=== PATIENT | male | born 1945 | race Caucasian/White ===

== ENCOUNTER 2020-07-20 08:50 | Inpatient (IN) | payer MEDICARE, OTHER ==
[~2020-07-20] VITALS: Ht 177.8 cm; Wt 61.7 kg
[2020-07-20] MEDS ORDERED: DEXAMETHASONE SOD PHOSPHATE 10 MG/ML VIAL IV ONE (09:00)
[2020-07-20] MEDS ORDERED: ACETAMINOPHEN ES 500 MG TABLET PO ONE (09:00)
[2020-07-20] MEDS ORDERED: ATEN25TA PO (09:30)
[2020-07-20] MEDS ORDERED: PRAV20TA4 PO (09:30)
[2020-07-20] MEDS ORDERED: MIDO2.5T PO (09:30)
[2020-07-20] MEDS ORDERED: BENA10TA74 PO (09:30)
[2020-07-20] MEDS ORDERED: ELTR50TA PO (09:30)
[2020-07-20] MEDS ORDERED: ALLO100T PO (09:30)
[2020-07-20] MEDS ORDERED: APIX5TAB PO (09:30)
[2020-07-20] MEDS ORDERED: FURO40TA5 PO (09:30)
[2020-07-20 09:58] LABS: BASOPHILS # (AUTO) 0.4 /CMM (0.0-0.2); BASOPHILS % (AUTO) 1.3 % (0.0-2.0); HEMATOCRIT 35 % (39-51); HEMOGLOBIN 11.2 g/dL (13.5-17.5); LYMPHOCYTES # (AUTO) 22.3 /CMM (0.8-4.8); LYMPHOCYTES % (AUTO) 75.3 % (20.0-44.0); MEAN CORPUSCULAR HGB CONC 32 g/dl (31.0-36.0); MEAN CORPUSCULAR VOLUME 86 fL (80-96); MONOCYTES # (AUTO) 0.2 /CMM (0.1-1.30); MONOCYTES % (AUTO) 0.6 % (2.0-12.0); NEUTROPHILS # (AUTO) 6.8 /CMM (1.8-8.9); NEUTROPHILS % (AUTO) 22.8 % (43.0-81.0); PLATELET COUNT (AUTO) 89 /CMM (150-450); RED BLOOD CELL COUNT(AUTO) 4.04 MIL/uL (4.5-6.0); WHITE BLOOD COUNT (AUTO) 29.7 K/uL (4.3-11.0)
[2020-07-20] MEDS ORDERED: VANCOMYCIN 1 GM in IV D5W 250 ML IV ONE (10:30)
[2020-07-20] MEDS ORDERED: PIPERACILLIN /TAZOBACTAM 3.375 G in IV D5W 50 ML IV ONE (10:30)
--- NOTE | 2020-07-20 10:43 | NUR ---
covid swab done sent to lab
[2020-07-20 10:46] LABS: LYMPHOCYTES % (MANUAL) 61 % (16-48); MONOCYTES % (MANUAL) 13 % (0-11.0); NEUTROPHILS % (MANUAL) 26 (42-76)
[2020-07-20] MEDS ORDERED: ACETAMINOPHEN ES 500 MG TABLET ONE (10:50)
[2020-07-20] MEDS ORDERED: DEXAMETHASONE SOD PHOSPHATE 10 MG/ML VIAL ONE (10:50)
--- NOTE | 2020-07-20 10:56 | NUR ---
LACTIC 2.0
--- NOTE | 2020-07-20 11:00 | NUR ---
blood culture collected prior to iv atb administration.
[2020-07-20 11:06] LABS: CARBON DIOXIDE 25 mmol/L (21-32); CHLORIDE 90 mmol/L (98-107); SODIUM SERUM 130 mmol/L (136-145)
[2020-07-20 11:07] LABS: ALANINE AMINOTRANSFERASE 33 U/L (12-78); ALKALINE PHOSPHATASE 72 U/L (46-116); ASPARTATE AMINOTRANSFERASE 96 U/L (15-37); BILIRUBIN,DIRECT 0.4 mg/dL (0.0-0.2); BILIRUBIN,TOTAL 1.1 mg/dL (0.2-1.0); CALCIUM, SERUM 8.9 mg/dL (8.5-10.1); CREATININE 2.4 mg/dL (0.6-1.3); GLUCOSE 138 mg/dL (74-106); UREA NITROGEN, BLOOD 71 mg/dL (7-18)
[2020-07-20 11:08] LABS: ALBUMIN 2.8 g/dL (3.4-5.0); TOTAL PROTEIN, SERUM 7.7 g/dL (6.4-8.2)
[2020-07-20 11:09] LABS: POTASSIUM 2.4 mmol/L (3.5-5.1)
--- NOTE | 2020-07-20 11:12 | NUR ---
K 2.4
--- NOTE | 2020-07-20 11:15 | NUR ---
urine collected sent to lab
[2020-07-20 11:57] LABS: BILIRUBIN,URINE Negative (NEGATIVE); BLOOD, URINE Negative Ery/uL (NEGATIVE); COLOR,URINE YELLOW (YELLOW); LEUKOCYTE ESTERASE ,URINE Negative (NEGATIVE); NITRITE, URINE Negative (NEGATIVE); PROTEIN,URINE 30 mg/dl (NEGATIVE); UGLUCOSE Negative (NEGATIVE); UROBILINOGEN,URINE 0.2 EU/dL (0.2)
[2020-07-20] MEDS: POTASSIUM CL. PREMIX PERIPHER. 50 ML IV SCH ×4 (12:00→15:30)
--- NOTE | 2020-07-20 12:01 | NUR ---
covid positive. made aware.
[2020-07-20] MEDS ORDERED: POTASSIUM CL. PREMIX PERIPHER. 50 ML ONE (12:04)
[2020-07-20 12:15] LABS: RBC,URINE 0-2 /HPF (0-2); WBC,URINE 0-2 /HPF (0-3)
[2020-07-20 12:18] LABS: BACTERIA,URINE Few /HPF (None Seen); SQUAMOUS EPITHELIAL CELL,UR Rare /HPF (None Seen)
--- NOTE | 2020-07-20 12:29 | NUR ---
LACTIC 2.2
[2020-07-20] MEDS ORDERED: MAGNESIUM HYDROXIDE 30 ML UDC PO PRN (12:30)
[2020-07-20] MEDS ORDERED: ONDANSETRON HCL/PF 4 MG/2 ML VIAL IVP PRN (12:30)
[2020-07-20] MEDS ORDERED: IV NS 0.9% 1,000 ML IV PRN ×2 (12:30)
[2020-07-20] MEDS ORDERED: MIDODRINE HCL 2.5 MG TABLET PO PRN (12:30)
[2020-07-20] MEDS ORDERED: HYDROCODONE/APAP 5/325MG TABLET PO PRN (12:30)
[2020-07-20] MEDS ORDERED: Z GUARD REMEDY 2 OZ OINT TP PRN (12:30)
[2020-07-20] MEDS ORDERED: MORPHINE SULFATE INJ 2 MG/ML DISP.SYRIN IV PRN (12:30)
[2020-07-20] MEDS ORDERED: MAG HYDROX/AL HYDROX/SIMETH 30 ML UDC PO PRN (12:30)
[2020-07-20] MEDS ORDERED: EZET10TA32 PO (12:39)
[2020-07-20] MEDS ORDERED: TRAZ-252 PO (12:39)
[2020-07-20 13:01] LABS: C-REACTIVE PROTEIN 17.5 mg/dL (0.0-0.9)
[2020-07-20] MEDS ORDERED: POTASSIUM CL. PREMIX PERIPHER. 150 ML ONE (13:49)
--- NOTE | 2020-07-20 14:10 | NUR ---
room 119-1
--- NOTE | 2020-07-20 16:07 | NUR ---
report given to Zonia GUTIERREZ for azar
--- NOTE | 2020-07-20 17:00 | NUR ---
Admitting Notes Received patient via gurney from ER, patient is A/Ox4, on NC @4L, tolerating well, no SOB reported, respirations even and unlabored, Telemonitor SR 78, R AC G 18 noted, patent, intact and flushed, Safety measures in place, call light in place, bed is locked in lowest position, will cont to monitor
--- NOTE | 2020-07-20 17:00 | NUR ---
pt transferred to [facility]
[2020-07-20 17:30] VITALS: BP 109/64
[2020-07-20] MEDS ORDERED: PIPERACILLIN /TAZOBACTAM 3.375 G in IV D5W 50 ML IV SCH (18:00)
[2020-07-20] MEDS: APIXABAN 5 MG TABLET PO SCH (18:29)
--- NOTE | 2020-07-20 19:30 | NUR ---
REPORT GIVEN TO PM SHIFT RN
[2020-07-20 20:00] VITALS: BP 100/60
--- NOTE | 2020-07-20 20:22 | NUR ---
RN NOTES PATIENT ALERT AND ORIENTED X4. NO SOB OR ANY RESPIRATORY DISTRESS. ON O2 4LPM VIA NASAL CANNULA, O2 SAT 98%. WITH PACEMAKER ON LEFT CHEST, NO S/S OF INFECTION. TELE MONITOR ON, SR 80'S. WITH RIGHT AC #18 PATENT AND INTACT, IV NS @50CC/HR INFUSING WELL. BED LOCKED AND IN LOWEST POSITION. SIDE RAILS UP X2. CALL LIGHT WITHIN REACH. SAFETY MEASURES IMPLEMENTED. WILL CONTINUE TO MONITOR.
[2020-07-20] MEDS: CEFEPIME 2 GM in IV D5W 100 ML IV SCH (22:11)
[2020-07-20] MEDS: DOXYCYCLINE HYCLATE (100 MG) 100 MG TABLET PO SCH (22:11)
[2020-07-21] VITALS (7 sets, daily range): BP systolic 98–130; BP diastolic 55–69
[2020-07-21] MEDS: ACETAMINOPHEN 325 MG TABLET PO PRN ×3 (04:51→21:22)
[2020-07-21 06:42] LABS: BASOPHILS # (AUTO) 0.2 /CMM (0.0-0.2); BASOPHILS % (AUTO) 0.6 % (0.0-2.0); HEMATOCRIT 34 % (39-51); LYMPHOCYTES # (AUTO) 19.9 /CMM (0.8-4.8); LYMPHOCYTES % (AUTO) 67.9 % (20.0-44.0); MEAN CORPUSCULAR HGB CONC 33 g/dl (31.0-36.0); MEAN CORPUSCULAR VOLUME 85 fL (80-96); MONOCYTES # (AUTO) 0.4 /CMM (0.1-1.30); MONOCYTES % (AUTO) 1.4 % (2.0-12.0); NEUTROPHILS # (AUTO) 8.8 /CMM (1.8-8.9); NEUTROPHILS % (AUTO) 30.1 % (43.0-81.0); PLATELET COUNT (AUTO) 92 /CMM (150-450); RED BLOOD CELL COUNT(AUTO) 3.95 MIL/uL (4.5-6.0); WHITE BLOOD COUNT (AUTO) 29.3 K/uL (4.3-11.0)
[2020-07-21 06:56] LABS: ALANINE AMINOTRANSFERASE 25 U/L (12-78); ALBUMIN 2.2 g/dL (3.4-5.0); ALKALINE PHOSPHATASE 55 U/L (46-116); ASPARTATE AMINOTRANSFERASE 78 U/L (15-37); CALCIUM, SERUM 8.4 mg/dL (8.5-10.1); CARBON DIOXIDE 21 mmol/L (21-32); CHLORIDE 99 mmol/L (98-107); CREATININE 1.9 mg/dL (0.6-1.3); GLUCOSE 109 mg/dL (74-106); SODIUM SERUM 136 mmol/L (136-145); TOTAL PROTEIN, SERUM 6.4 g/dL (6.4-8.2); UREA NITROGEN, BLOOD 61 mg/dL (7-18)
[2020-07-21 07:07] LABS: CHOLESTEROL 102 mg/dL (<200); CREATINE KINASE, TOTAL 185 U/L (39-308); LDL 39 mg/dL (0-99); THYROID STIMULATING HORMONE 0.136 uIU/mL (0.358-3.74); TRIGLYCERIDES 336 mg/dL (30-150)
[2020-07-21 07:08] LABS: IRON, SERUM 127 ug/dl (50-175); TOTAL IRON BINDING CAPACITY 215 ug/dl (250-450)
[2020-07-21 07:14] LABS: POTASSIUM 2.3 mmol/L (3.5-5.1)
--- NOTE | 2020-07-21 07:16 | NUR ---
RN NOTES PATIENT ALERT AND ORIENTED X4. NO SOB OR ANY RESPIRATORY DISTRESS. ON O2 4LPM VIA NASAL CANNULA, O2 SAT 100%. WITH PACEMAKER ON LEFT CHEST, NO S/S OF INFECTION. TELE MONITOR ON, HR 94. WITH RIGHT AC #18 PATENT AND INTACT, IV NS @50CC/HR INFUSING WELL. BED LOCKED AND IN LOWEST POSITION. SIDE RAILS UP X2. CALL LIGHT WITHIN REACH. SAFETY MEASURES IMPLEMENTED. WILL ENDORSE TO NEXT SHIFT.
[2020-07-21 07:17] LABS: HDL CHOLESTEROL 11 mg/dL (40-60)
--- NOTE | 2020-07-21 07:30 | NUR ---
RN OPENING NOTES RECEIVED PATIENT IN BED, A/OX3, HAITIAN SPEAKER, ON NC @4L, SPO2 IS 93%, TOLERATING WELL, NO SOB NOTED, DENIES PAIN OR DISCOMFORT, SR WITH HR 72, PACEMAKER ON LEFT CHEST NOTED, PATIENT IS ON CARDIAC DIET. SAFETY PRECAUTIONS IN PLACE, BED IS LOCKED, IN LOWEST POSITION, BED ALARM IS ON, CALL LIGHT IN REACH, WILL MONITOR CLOSELY
[2020-07-21] MEDS ORDERED: POTASSIUM CHLORIDE 20 MEQ TAB.PRT.SR PO ONE (08:30)
[2020-07-21] MEDS ORDERED: ATENOLOL 25 MG TABLET PO SCH (09:00)
[2020-07-21] MEDS ORDERED: BENAZEPRIL HCL 10 MG TABLET PO SCH (09:00)
[2020-07-21] MEDS ORDERED: FUROSEMIDE 40 MG TABLET PO SCH (09:00)
[2020-07-21] MEDS ORDERED: ATORVASTATIN 10 MG TABLET PO SCH (09:00)
[2020-07-21] MEDS: APIXABAN 5 MG TABLET PO SCH ×2 (09:08→17:38)
[2020-07-21] MEDS: ALLOPURINOL 100 MG TABLET PO SCH (09:11)
[2020-07-21] MEDS: DOXYCYCLINE HYCLATE (100 MG) 100 MG TABLET PO SCH ×3 (09:13→21:21)
[2020-07-21] MEDS ORDERED: VANCOMYCIN 1.25 GM in IV D5W 250 ML IV SCH (10:00)
[2020-07-21 10:15] LABS: ABG BASE EXCESS -2.9 mmol/L; ABG OXYGEN SATURATION 82.5 % (92.0-98.5); ABG PCO2 27.1 mmHg (35.0-45.0); ABG PH 7.468 (7.350-7.450); ABG PO2 45.1 mmHg (75.0-100.0); COHb 0.7 % (0.5-1.5); O2Hb 81.9 % (94.0-97.0); SITE, ABG Right Radial; VENT MODE, BG 3 L NC
[2020-07-21] MEDS: POTASSIUM CL. PREMIX PERIPHER. 50 ML IV SCH ×4 (10:48→12:53)
[2020-07-21] MEDS: DEXAMETHASONE SOD PHOSPHATE 10 MG/ML VIAL IV SCH (11:25)
--- NOTE | 2020-07-21 12:10 | NUR ---
pATIENT HAS FEVER 101.1 WILL ADMINISTER PRN TYLENOL
--- NOTE | 2020-07-21 12:30 | NUR ---
PER DR RENEE PUT PATIENT ON SIMPLE MASK, AT 10L DUE DECREASED SPO2 RATE AND PAO2 AFTER ABG LAB, TOLERATING WELL SPO2 IS 94%, NO SOB NOTED, RESPIRATIONS EVEN AND NONLABORED
[2020-07-21] MEDS: HOME MED MISCELLANEOUS PO SCH (12:53)
[2020-07-21 12:55] LABS: CALCIUM, SERUM 8.9 mg/dL (8.5-10.1); CARBON DIOXIDE 23 mmol/L (21-32); CHLORIDE 100 mmol/L (98-107); GLUCOSE 117 mg/dL (74-106); POTASSIUM 3.2 mmol/L (3.5-5.1); SODIUM SERUM 138 mmol/L (136-145); UREA NITROGEN, BLOOD 62 mg/dL (7-18)
[2020-07-21] MEDS: POTASSIUM CHLORIDE 20 MEQ TAB.PRT.SR PO SCH ×3 (12:57→14:48)
[2020-07-21] MEDS: CARVEDILOL 6.25 MG TABLET PO SCH ×2 (12:57→21:12)
--- NOTE | 2020-07-21 19:34 | NUR ---
RN CLOSING NOTES STABLE, TOLERATING O2 THERAPY WELL, O2 MONITOR PRESENT AT BED SITE , SPO2 IS 93%, NO DISTRESS OR SOB NOTED, DENIES PAIN, COMFORT NEEDS ATTENDED, MEDICATIONS GIVEN, SAFETY MEASURES IMPLEMENTED, CALL LIGHT IN REACH, WILL ENDORSE TO PM SHIFT RN FOR PARAMJIT
--- NOTE | 2020-07-21 19:53 | NUR ---
MACHINE QUILT STUFFER OPENING NOTES PATIENT AWAKE IN BED. A/OX3; PRIMARY LANGUAGE CITIZEN OF [place]. ON SIMPLE MASK 12 L; CONTINUE PULSE OX READING 91% NO S/S OF ACUTE RESPIRATORY DISTRESS; BREATHING IS EVEN AND UNLABORED. NO S/S OF PAIN NOTED. TELE MONITOR READING AFIB WITH BBB. RIGHT AC, SIZE 18, INTACT & PATENT, HEP LOCKED. SAFETY MEASURES IN PLACE AND PATIENT'S NEEDS MET. BED LOCKED, HOB ELEVATED, SIDE RAILS X2, CALL LIGHT WITHIN REACH. WILL CONTINUE TO MONITOR.
[2020-07-21] MEDS: CEFEPIME 2 GM in IV D5W 100 ML IV SCH (20:52)
--- NOTE | 2020-07-21 21:12 | NUR ---
FILM PROCESS OPERATOR NOTES PATIENT'S SPO2 ON 10 L SIMPLE MASK 82-85%. PLACED NONREBREATHER ON PATIENT; SPO2 90-93%. WILL CONTINUE TO MONITOR.
[2020-07-22] VITALS: BP 112/56
[2020-07-22 04:00] VITALS: BP 111/58
--- NOTE | 2020-07-22 07:30 | NUR ---
RN OPENING NOTE RECEIVED PT IN BED, A/OX3. BOLIVIAN SPEAKING, UNDERSTANDS FEW DUTCH. ON NONREBREATHER MASK SATURATING @93%. NO SOB NOTED. NO PAIN OR DISCOMFORT AT THIS TIME. SR WITH HR @90S. PACEMAKER ON LEFT CHEST NOTED. CARDIAC DIET. SAFETY PRECAUTIONS IN PLACE. BED IS LOCKED AND IN LOWEST POSITION. BED ALARM ON. CALL LIGHT IN REACH. WILL CONTINUE TO MONITOR
[2020-07-22 07:43] LABS: BASOPHILS # (AUTO) 0.1 /CMM (0.0-0.2); BASOPHILS % (AUTO) 0.3 % (0.0-2.0); HEMATOCRIT 37 % (39-51); HEMOGLOBIN 11.7 g/dL (13.5-17.5); LYMPHOCYTES # (AUTO) 26.1 /CMM (0.8-4.8); LYMPHOCYTES % (AUTO) 72.8 % (20.0-44.0); MEAN CORPUSCULAR HGB CONC 32 g/dl (31.0-36.0); MEAN CORPUSCULAR VOLUME 88 fL (80-96); MONOCYTES # (AUTO) 0.5 /CMM (0.1-1.30); MONOCYTES % (AUTO) 1.5 % (2.0-12.0); NEUTROPHILS # (AUTO) 9.1 /CMM (1.8-8.9); NEUTROPHILS % (AUTO) 25.4 % (43.0-81.0); PLATELET COUNT (AUTO) 98 /CMM (150-450); RED BLOOD CELL COUNT(AUTO) 4.18 MIL/uL (4.5-6.0)
--- NOTE | 2020-07-22 07:48 | NUR ---
DELINQUENT TAX COLLECTION ASSISTANT CLOSING NOTES PATIENT SLEEPING, AWAKENS TO NAME. A/OX2-3. ON NONREBREATHER MASK, CONTINUOUS PULSE OX READING 93%; NO S/S OF ACUTE RESPIRATORY DISTRESS; BREATHING IS EVEN AND UNLABORED. NO S/S OF PAIN NOTED. TELE MONITOR READING AFIB WITH BBB. RIGHT AC, SIZE 18, INTACT & PATENT, HEP LOCKED. SAFETY MEASURES IN PLACE AND PATIENT'S NEEDS MET. BED LOCKED, HOB ELEVATED, SIDE RAILS X2, CALL LIGHT WITHIN REACH. ENDORSED TO DAY SHIFT RN PLAN OF CARE.
[2020-07-22 07:59] LABS: WHITE BLOOD COUNT (AUTO) 35.8 K/uL (4.3-11.0)
[2020-07-22 08:00] VITALS: BP 113/74
[2020-07-22 08:02] LABS: ALANINE AMINOTRANSFERASE 27 U/L (12-78); ALBUMIN 2.3 g/dL (3.4-5.0); ALKALINE PHOSPHATASE 62 U/L (46-116); ASPARTATE AMINOTRANSFERASE 88 U/L (15-37); BILIRUBIN,TOTAL 1.1 mg/dL (0.2-1.0); CALCIUM, SERUM 9.5 mg/dL (8.5-10.1); CARBON DIOXIDE 24 mmol/L (21-32); CHLORIDE 107 mmol/L (98-107); CREATININE 1.7 mg/dL (0.6-1.3); GLUCOSE 132 mg/dL (74-106); MAGNESIUM 2.6 mg/dL (1.8-2.4); PHOSPHORUS 2.5 mg/dL (2.5-4.9); POTASSIUM 2.9 mmol/L (3.5-5.1); SODIUM SERUM 145 mmol/L (136-145); TOTAL PROTEIN, SERUM 7.2 g/dL (6.4-8.2); UREA NITROGEN, BLOOD 58 mg/dL (7-18)
[2020-07-22 08:12] LABS: PTH, INTACT 55 pg/mL (15-65)
[2020-07-22] MEDS: APIXABAN 5 MG TABLET PO SCH ×2 (09:00→17:24)
[2020-07-22] MEDS: DEXAMETHASONE SOD PHOSPHATE 10 MG/ML VIAL IV SCH (10:02)
[2020-07-22] MEDS: DOXYCYCLINE HYCLATE (100 MG) 100 MG TABLET PO SCH ×2 (10:02→20:56)
[2020-07-22] MEDS: HOME MED MISCELLANEOUS PO SCH (10:03)
[2020-07-22] MEDS: ALLOPURINOL 100 MG TABLET PO SCH (10:03)
[2020-07-22] MEDS: CARVEDILOL 6.25 MG TABLET PO SCH ×2 (10:03→21:22)
[2020-07-22] MEDS: POTASSIUM CHLORIDE 20 MEQ TAB.PRT.SR PO SCH ×4 (10:09→14:00)
[2020-07-22 12:00] VITALS: BP 112/57
[2020-07-22 13:41] LABS: BAND % (MANUAL) 1 % (0.0-5.0); LYMPHOCYTES % (MANUAL) 65 % (16-48); MONOCYTES % (MANUAL) 2 % (0-11.0); NEUTROPHILS % (MANUAL) 32 (42-76)
--- NOTE | 2020-07-22 14:13 | NUR ---
PATIENT PCR COVID POSITIVE MADE AWARE.
[2020-07-22 15:07] LABS: *SPE A/G RATIO 0.8 (0.7-1.7); *SPE ALBUMIN 2.6 g/dL (2.9-4.4); *SPE ALPHA-1-GLOBULIN 0.4 g/dL (0.0-0.4); *SPE ALPHA-2-GLOBULIN 1.5 g/dL (0.4-1.0); *SPE BETA GLOBULIN 0.9 g/dL (0.7-1.3); *SPE GLOBULIN, TOTAL 3.3 g/dL (2.2-3.9); *SPE M-SPIKE Not Observed g/dL (Not Observed); *SPEGAMMA GLOBULIN 0.6 g/dL (0.4-1.8)
[2020-07-22 16:00] VITALS: BP 102/61
[2020-07-22] MEDS: ENSURE ENLIVE CHOC 237 ML CAN PO SCH (17:00)
[2020-07-22] MEDS ORDERED: Z GUARD REMEDY 2 OZ OINT TP PRN (17:30)
--- NOTE | 2020-07-22 19:45 | NUR ---
BUSINESS DEPARTMENT CHAIR OPENING NOTES RECEIVED PATIENT IN BED, ALERT AND ORIENTED X 2-3 AUSTRIAN SPEAKING. VERBALLY RESPONSIVE AND ABLE TO FOLLOW DIRECTIONS. BREATHING REGULAR AND UNLABORED ON OXYGEN AT 15L/MIN VIA NON-REBREATHER MASK, LATEST SPO2 91%. RIGHT AC G18 IV LINE INTACT AND PATENT, FLUSHING WELL WITH NO BLEEDING OR S/S OF INFILTRATION NOTED. ON CARDIAC MONITORING WITH ATRIAL FIBRILLATION AT 71bpm. NO S/S OF PAIN/DISCOMFORT NOTED AT THIS TIME. BED LOW AND LOCKED ON HIGH FOWLERS POSITION. MAINTAINED ON CONTACT/DROPLET ISOLATION FOR COVID19, PROPER HAND WASHING AND ISOLATION PRECAUTIONS OBSERVED. CALL LIGHT IN REACH. WILL CONTINUE TO MONITOR
[2020-07-22 20:00] VITALS: BP 111/57
--- NOTE | 2020-07-22 20:09 | NUR ---
RN CLOSING NOTE PT RESTING IN BED, A/OX3. NORTHERN IRISH SPEAKING, UNDERSTANDS FEW SPANISH. ON NONREBREATHER MASK SATURATING @91%. NO SOB NOTED. NO PAIN OR DISCOMFORT AT THIS TIME. SR WITH HR @90S. PACEMAKER ON LEFT CHEST NOTED. CARDIAC DIET. SAFETY PRECAUTIONS IN PLACE. BED IS LOCKED AND IN LOWEST POSITION. BED ALARM ON. CALL LIGHT IN REACH. WILL ENDORSE TO NIGHT NURSE FOR PARAMJIT
[2020-07-22] MEDS: CEFEPIME 2 GM in IV D5W 100 ML IV SCH (20:56)
[2020-07-23] VITALS (11 sets, daily range): BP systolic 92–128; BP diastolic 55–72
--- NOTE | 2020-07-23 00:20 | NUR ---
TREAD CUTTER NOTES CONVALESCENT PLASMA TRANSFUSION STARTED, VITAL SIGNS TAKEN PRIOR. WILL CLOSELY MONITOR FOR TRANSFUSION REACTIONS.
--- NOTE | 2020-07-23 02:40 | NUR ---
BULB ASSEMBLER NOTES S/P CONVALESCENT PLASMA TRANSFUSION, VITAL SIGNS TAKEN AND RECORDED. NO TRANSFUSION REACTIONS NOTED AT THIS TIME. WILL CONTINUE TO MONITOR.
[2020-07-23 06:23] LABS: BASOPHILS # (AUTO) 0.2 /CMM (0.0-0.2); BASOPHILS % (AUTO) 0.5 % (0.0-2.0); HEMATOCRIT 35 % (39-51); HEMOGLOBIN 11.3 g/dL (13.5-17.5); LYMPHOCYTES # (AUTO) 25.7 /CMM (0.8-4.8); LYMPHOCYTES % (AUTO) 70.4 % (20.0-44.0); MEAN CORPUSCULAR HGB CONC 32 g/dl (31.0-36.0); MEAN CORPUSCULAR VOLUME 87 fL (80-96); MONOCYTES # (AUTO) 0.7 /CMM (0.1-1.30); MONOCYTES % (AUTO) 1.9 % (2.0-12.0); NEUTROPHILS # (AUTO) 9.9 /CMM (1.8-8.9); NEUTROPHILS % (AUTO) 27.2 % (43.0-81.0); PLATELET COUNT (AUTO) 111 /CMM (150-450); RED BLOOD CELL COUNT(AUTO) 4.02 MIL/uL (4.5-6.0)
--- NOTE | 2020-07-23 06:30 | NUR ---
VERTICAL BORER CLOSING NOTES PATIENT IN BED, ALERT AND ORIENTED X 1. AFEBRILE WITH NO S/S OF DISTRESS OBSERVED. RIGHT AC G18 IV LINE PATENT AND FLUSHING WELL. MAINTAINED ON CARDIAC MONITORING WITH ATRIAL FIBRILLATION AT 68bpm. NO S/S OF PAIN/DISCOMFORT NOTED AT THIS TIME. BED LOW AND LOCKED ON HIGH FOWLERS POSITION. WILL ENDORSE TO MORNING SHIFT FOR PARAMJIT.
[2020-07-23 06:43] LABS: WHITE BLOOD COUNT (AUTO) 36.4 K/uL (4.3-11.0)
[2020-07-23 07:11] LABS: CALCIUM, SERUM 9.8 mg/dL (8.5-10.1); CARBON DIOXIDE 25 mmol/L (21-32); CHLORIDE 113 mmol/L (98-107); CREATININE 1.8 mg/dL (0.6-1.3); GLUCOSE 151 mg/dL (74-106); SODIUM SERUM 151 mmol/L (136-145); UREA NITROGEN, BLOOD 74 mg/dL (7-18)
--- NOTE | 2020-07-23 07:30 | NUR ---
RN OPENING NOTE - MAU Received patient asleep in bed appears calm and relaxed. On non rebreather mask 15L tolerating well o2 sat 91%. Patient AO x1-2 nods and shakes head but non verbal. Tele reading SR 80-90bpm. Has R AC #18 flushes well. No signs of pain or discomfort. Safety measures maintained. Call light within reach. Bed locked and on lowest position. Will cont to monitor,.
[2020-07-23 07:33] LABS: LYMPHOCYTES % (MANUAL) 75 % (16-48); MONOCYTES % (MANUAL) 2 % (0-11.0); NEUTROPHILS % (MANUAL) 23 (42-76)
[2020-07-23 07:36] LABS: C-REACTIVE PROTEIN 25.8 mg/dL (0.0-0.9)
--- NOTE | 2020-07-23 07:45 | NUR ---
CRITICAL LAB VALUE CALLED BY LAB POTASSIUM 2.7. INFORMED VALERY ROSS WITH NEW ORDERS AWAITING.
[2020-07-23 07:47] LABS: POTASSIUM 2.7 mmol/L (3.5-5.1)
[2020-07-23] MEDS: DEXAMETHASONE SOD PHOSPHATE 10 MG/ML VIAL IV SCH (08:54)
[2020-07-23] MEDS: ENSURE ENLIVE CHOC 237 ML CAN PO SCH (08:54)
[2020-07-23] MEDS: ALLOPURINOL 100 MG TABLET PO SCH (08:55)
[2020-07-23] MEDS: CARVEDILOL 6.25 MG TABLET PO SCH ×2 (08:55→21:59)
[2020-07-23] MEDS: HOME MED MISCELLANEOUS PO SCH (08:55)
[2020-07-23] MEDS: APIXABAN 5 MG TABLET PO SCH ×2 (08:56→16:47)
[2020-07-23] MEDS: DOXYCYCLINE HYCLATE (100 MG) 100 MG TABLET PO SCH ×2 (08:56→21:59)
[2020-07-23] MEDS ORDERED: POTASSIUM CHLORIDE 20 MEQ TAB.PRT.SR PO SCH (11:00)
[2020-07-23] MEDS: ACETAMINOPHEN 325 MG TABLET PO PRN (11:49)
--- NOTE | 2020-07-23 13:39 | NUR ---
REPORT GIVEN TO WILFRED GUTIERREZ FOR PARAMJIT.
--- NOTE | 2020-07-23 14:05 | NUR ---
CREPE BOX TENDER NOTE RECEIVED PATIENT FROM [facility]. RECEIVED PATIENT ON 15L NONREBREATHER SATURATING AT 93% SPO2. PATIENT IN NO ACUTE DISTRESS. NO SOB NOTED. PATIENT BREATHING IS EVEN AND UNLABORED. PATIENT IN BED RESTING COMFORTABLY. PATIENT BED ALARM IS ON. PATIENT BED IS LOCKED AND IN LOWEST POSITION. CALL LIGHT WITHIN REACH. WILL CONTINUE TO MONITOR.
[2020-07-23] MEDS: POTASSIUM CHLORIDE 20 MEQ POWDER PACKET PO SCH ×4 (14:10→17:00)
[2020-07-23] MEDS: ENSURE ENLIVE 237 ML LIQUID (VANILLA) PO SCH ×2 (14:30→16:59)
[2020-07-23] MEDS ORDERED: POTASSIUM CHLORIDE 20 MEQ POWDER PACKET PO SCH (18:10)
[2020-07-23] MEDS ORDERED: MIDODRINE HCL (5MG) 5 MG TABLET PO PRN (18:30)
--- NOTE | 2020-07-23 18:34 | NUR ---
PHYSICAL MEDICINE SPECIALIST NOTE PATIENT IS IN BED RESTING COMFORTABLY. PATIENT IS IN NO ACUTE DISTRESS. PATIENT IS NON VERBAL, RESPONDS TO TOUCH AND VOICE STIMULI. PATIENT ON CARDIAC MONITORING AND IS VPACING HR 70. PATIENT IS ON NON-REBREATHER MASK ON 15L O2 SATURATING AT 94% SPO2. PATIENT KEPT CLEAN, DRY, AND COMFORTABLE THROUGHOUT SHIFT. NO FACIAL GRIMACING NOTED. PATIENT BED ALARM IS ON. PATIENT BED IS LOCKED AND IN LOWEST POSITION. CALL LIGHT WITHIN REACH. ENDORSE TO [employer] CONCRETE PRODUCTS INSTALLER NURSE FOR PARAMJIT.
--- NOTE | 2020-07-23 19:20 | NUR ---
RN OPENING NOTES RECEIVED PT IN BED. ISOLATION PRECAUTIONS IN PLACE FOR COVID POSITIVE RESULT. PT IS A/O X 1-2, NONVERBAL ABLE NODS TO YES AND NO. ABLE TO MAKE NEEDS KNOWN. PT IS ON 15L NON REBREATHER MASK SATURATING WELL AT 95%. PT IS NOT EXPERIENCING SOB OR RESP DISTRESS AT THIS TIME. TELE MONITORING IN PLACE. BREATHING IS EVEN. PT SHOWS NSR HEART RATE OF 83. IV SITE FLUSHED, ASEPTICALLY. PT DENIES PAIN. PT BELONGINGS AT BEDSIDE. SAFETY MEASURES IN PLACE. HOB ELEVATED. SIDE RAILS UP X2. BED LOCKED IN LOWEST POSITION WITH BED ALARM ON. CALL LIGHT WITHIN REACH WILL CONTINUE TO MONITOR.
[2020-07-23] MEDS: CEFEPIME 2 GM in IV D5W 100 ML IV SCH (22:00)
[2020-07-24] VITALS: BP 95/70
[2020-07-24 04:00] VITALS: BP 100/55
--- NOTE | 2020-07-24 07:09 | NUR ---
RN CLOSING NOTES PATIENT REMAINS IN BED. I PT IS A/O X 1-2, N PT IS ON 15L NON REBREATHER MASK SATURATING WELL AT 92% . HOB ELEVATED. NO RESP DISTRESS AT THIS TIME. TELE MONITORING IN PLACE SHOWS V PACING/ AFIB. BREATHING IS EVEN. . IV SITE FLUSHED, ASEPTICALLY. PT DENIES PAIN. SAFETY MEASURES IN PLACE. . SIDE RAILS UP X2. BED LOCKED IN LOWEST POSITION WITH BED ALARM ON. CALL LIGHT WITHIN REACH WILL ENDORSE TO AM SHIFT FOR PARAMJIT.
--- NOTE | 2020-07-24 07:20 | NUR ---
RN OPENING NOTES RECEIVED PT IN BED. A/O X 1-2. ISOLATION PRECAUTIONS IN PLACE FOR COVID. NONVERBAL. NODS TO YES AND NO QUESTIONS. ON 15L NON REBREATHER MASK SATURATING @94%. NO SOB OR ANY S/S OF RESP DISTRESS AT THIS TIME. TELE MONITORING SHOWS VFIB V PACING. IV SITE AT R AC #18 INTACT, PATENT AND FLUSHED. NO PAIN REPORTED AT THIS TIME. SAFETY MEASURES IN PLACE. CALL LIGHT WITHIN REACH. HOB ELEVATED. BED LOCKED AND IN LOWEST POSITION WITH SIDE RAILS UP X2. BED ALARM ON. WILL CONTINUE TO MONITOR.
[2020-07-24 07:47] LABS: BASOPHILS # (AUTO) 0.2 /CMM (0.0-0.2); BASOPHILS % (AUTO) 0.4 % (0.0-2.0); HEMATOCRIT 38 % (39-51); HEMOGLOBIN 12.1 g/dL (13.5-17.5); LYMPHOCYTES # (AUTO) 30.6 /CMM (0.8-4.8); LYMPHOCYTES % (AUTO) 66.4 % (20.0-44.0); MEAN CORPUSCULAR HGB CONC 32 g/dl (31.0-36.0); MEAN CORPUSCULAR VOLUME 88 fL (80-96); MONOCYTES # (AUTO) 0.7 /CMM (0.1-1.30); MONOCYTES % (AUTO) 1.5 % (2.0-12.0); NEUTROPHILS # (AUTO) 14.6 /CMM (1.8-8.9); NEUTROPHILS % (AUTO) 31.7 % (43.0-81.0); PLATELET COUNT (AUTO) 131 /CMM (150-450); RED BLOOD CELL COUNT(AUTO) 4.37 MIL/uL (4.5-6.0)
[2020-07-24 08:00] VITALS: BP 121/70
[2020-07-24 08:00] LABS: ALANINE AMINOTRANSFERASE 44 U/L (12-78); ALBUMIN 2.3 g/dL (3.4-5.0); ALKALINE PHOSPHATASE 71 U/L (46-116); ASPARTATE AMINOTRANSFERASE 120 U/L (15-37); CARBON DIOXIDE 24 mmol/L (21-32); CHLORIDE 121 mmol/L (98-107); CREATININE 1.8 mg/dL (0.6-1.3); GLUCOSE 135 mg/dL (74-106); MAGNESIUM 2.8 mg/dL (1.8-2.4); PHOSPHORUS 2.5 mg/dL (2.5-4.9); POTASSIUM 4.1 mmol/L (3.5-5.1); TOTAL PROTEIN, SERUM 7.4 g/dL (6.4-8.2)
[2020-07-24 08:08] LABS: SODIUM SERUM 158 mmol/L (136-145); UREA NITROGEN, BLOOD 86 mg/dL (7-18)
[2020-07-24 08:18] LABS: BILIRUBIN,TOTAL 1.1 mg/dL (0.2-1.0); CALCIUM, SERUM 10.2 mg/dL (8.5-10.1)
[2020-07-24] MEDS: HOME MED MISCELLANEOUS PO SCH (08:22)
[2020-07-24] MEDS: DEXAMETHASONE SOD PHOSPHATE 10 MG/ML VIAL IV SCH (08:22)
[2020-07-24] MEDS: ENSURE ENLIVE 237 ML LIQUID (VANILLA) PO SCH ×3 (08:22→17:22)
[2020-07-24] MEDS: ALLOPURINOL 100 MG TABLET PO SCH (08:23)
[2020-07-24] MEDS: DOXYCYCLINE HYCLATE (100 MG) 100 MG TABLET PO SCH (08:23)
[2020-07-24 08:30] LABS: PLATELET COUNT (AUTO) 131 /CMM (150-450)
[2020-07-24 08:31] LABS: D-DIMER 5.65 mg/L(FEU (0.17-0.50)
[2020-07-24 08:40] LABS: C-REACTIVE PROTEIN 39.6 mg/dL (0.0-0.9)
[2020-07-24 08:55] LABS: WHITE BLOOD COUNT (AUTO) 46.1 K/uL (4.3-11.0)
[2020-07-24] MEDS: CARVEDILOL 6.25 MG TABLET PO SCH ×2 (09:51→21:29)
[2020-07-24] MEDS: APIXABAN 5 MG TABLET PO SCH ×2 (09:53→17:22)
[2020-07-24 10:04] LABS: BAND % (MANUAL) 1 % (0.0-5.0); EOSINOPHILS % (MANUAL) 1 % (0-4); LYMPHOCYTES % (MANUAL) 57 % (16-48); MONOCYTES % (MANUAL) 7 % (0-11.0); NEUTROPHILS % (MANUAL) 34 (42-76)
--- NOTE | 2020-07-24 10:23 | NUR ---
WOUND CARE CONSULT: REVIEWED CHART, NURSING DOCUMENTATION AND PHOTOS WHICH INDICATE DIFFUSE SKIN DISCOLORATION TO RT BUTTOCK. RECOMMENDATIONS MADE FOR SKIN PROTECTION. DISCUSSED WITH NURSING STAFF. MD IN AGREEMENT WITH PLAN OF CARE.
[2020-07-24 12:00] VITALS: BP 111/61
[2020-07-24] MEDS: LEVOTHYROXINE SODIUM 50 MCG TABLET PO SCH (14:02)
[2020-07-24 16:00] VITALS: BP 130/86
[2020-07-24] MEDS ORDERED: MEROPENEM 500 MG in IV NS 0.9% 50 ML IV SCH (18:00)
--- NOTE | 2020-07-24 19:34 | NUR ---
RN CLOSING NOTES PT RESTING IN BED. A/O X 1-2. ISOLATION PRECAUTIONS IN PLACE FOR COVID. NONVERBAL. NODS TO YES AND NO QUESTIONS. ON 15L NON REBREATHER MASK SATURATING @95%. NO SOB OR ANY S/S OF RESP DISTRESS AT THIS TIME. TELE MONITORING SHOWS VFIB V PACING. IV SITE AT R AC #18 INTACT, PATENT AND FLUSHED. NO PAIN REPORTED AT THIS TIME. SAFETY MEASURES IN PLACE. CALL LIGHT WITHIN REACH. HOB ELEVATED. BED LOCKED AND IN LOWEST POSITION WITH SIDE RAILS UP X2. BED ALARM ON. WILL ENDORSE TO NIGHT NURSE FOR PARAMJIT.
[2020-07-24 20:00] VITALS: BP 118/63
--- NOTE | 2020-07-24 20:00 | NUR ---
RN NOTE RECEIVED PT IN BED, PT IS ON 15 L VIA NON REBREATHER SATING 94%, PT ON TELE MONITOR SHOWING V PACING. SAFETY MEASURE IN PLACE.
[2020-07-24] MEDS: diphenhydrAMINE HCL 50 MG/ML VIAL IV ONE ×2 (20:53→21:21)
[2020-07-24] MEDS: ACETAMINOPHEN 325 MG TABLET PO ONE ×2 (20:53→21:21)
[2020-07-24] MEDS ORDERED: TOCILIZUMAB 400 MG in IV NS 0.9% 80 ML IV ONE (21:00)
--- NOTE | 2020-07-24 21:16 | NUR ---
ACTEMRA IS NOT ADMINISTERED, BECAUSE TB TEST WAS NOT DONE. NOHELIA RAMIREZ (COMMUNITY HEALTH REPRESENTATIVE), PER ASHLEY HOLD THE ACTEMRA.
--- NOTE | 2020-07-24 21:21 | NUR ---
BENADRYL AND TYLENOL ARE NOT ADMINISTERED, BECAUSE ACTEMRA SHOULD BE HELD, MEDICATIONS RETURNED TO [facility].
[2020-07-24] MEDS: MEROPENEM 1 G in IV NS 0.9% 100 ML IV SCH (21:27)
[2020-07-24] MEDS: VANCOMYCIN 1 GM in IV D5W 250 ML IV ONE ×2 (21:35→21:58)
[2020-07-24] MEDS: IV D5W 1,000 ML IV PRN (21:57)
[2020-07-24] MEDS ORDERED: HEPARIN INFUSION/D5W 500 ML IV ONE (23:36)
[2020-07-25] VITALS: BP 137/75
[2020-07-25 04:00] VITALS: BP 140/73
[2020-07-25] MEDS ORDERED: HEPARIN INFUSION/D5W 500 ML IV PRN (06:00)
--- NOTE | 2020-07-25 07:25 | NUR ---
RN OPENING NOTE - MAU Received patient asleep in bed on non rebreather mask 15l o2 sat at 92%. Patient opens eyes but non verbal. Noted with pacemaker. Tele reading v pacing and afib reate 70-80s. Has bilateral soft wrist restraints. Has R AC #18 running D5w @ 75ml/hr. No signs of pain or discomfort. Safety measures reinforced. Call light within reach. Will cont to monitor.
--- NOTE | 2020-07-25 07:36 | NUR ---
RN NOTE PT REMAINED STABLE DURING MY SHIFT NO ACUTE CHANGES REPORT GIVEN TO INCOMING SHIFT FOR PARAMJIT.
[2020-07-25 07:53] LABS: BASOPHILS # (AUTO) 0.1 /CMM (0.0-0.2); BASOPHILS % (AUTO) 0.2 % (0.0-2.0); EOSINOPHILS % (AUTO) 0.1 % (0.0-6.0); HEMATOCRIT 39 % (39-51); HEMOGLOBIN 12.1 g/dL (13.5-17.5); LYMPHOCYTES # (AUTO) 31.3 /CMM (0.8-4.8); LYMPHOCYTES % (AUTO) 64.6 % (20.0-44.0); MEAN CORPUSCULAR HGB CONC 31 g/dl (31.0-36.0); MEAN CORPUSCULAR VOLUME 89 fL (80-96); MONOCYTES # (AUTO) 0.7 /CMM (0.1-1.30); MONOCYTES % (AUTO) 1.4 % (2.0-12.0); NEUTROPHILS # (AUTO) 16.3 /CMM (1.8-8.9); NEUTROPHILS % (AUTO) 33.7 % (43.0-81.0); PLATELET COUNT (AUTO) 145 /CMM (150-450); RED BLOOD CELL COUNT(AUTO) 4.36 MIL/uL (4.5-6.0)
[2020-07-25 08:00] VITALS: BP 123/71
[2020-07-25 08:08] LABS: WHITE BLOOD COUNT (AUTO) 48.4 K/uL (4.3-11.0)
[2020-07-25 08:46] LABS: CALCIUM, SERUM 10.3 mg/dL (8.5-10.1); CARBON DIOXIDE 24 mmol/L (21-32); CHLORIDE 122 mmol/L (98-107); CREATININE 2.1 mg/dL (0.6-1.3); GLUCOSE 185 mg/dL (74-106); POTASSIUM 4.9 mmol/L (3.5-5.1)
[2020-07-25 09:18] LABS: AFP, TUMOR MARKER <0.9 ng/mL (0.0-8.3)
[2020-07-25 09:25] LABS: SODIUM SERUM 157 mmol/L (136-145); UREA NITROGEN, BLOOD 100 mg/dL (7-18)
[2020-07-25] MEDS: HOME MED MISCELLANEOUS PO SCH (09:41)
[2020-07-25] MEDS: ALLOPURINOL 100 MG TABLET PO SCH (09:42)
[2020-07-25] MEDS: LEVOTHYROXINE SODIUM 50 MCG TABLET PO SCH (09:42)
[2020-07-25] MEDS: CARVEDILOL 6.25 MG TABLET PO SCH ×2 (09:42→21:00)
[2020-07-25] MEDS: MEROPENEM 1 G in IV NS 0.9% 100 ML IV SCH ×2 (09:43→20:58)
[2020-07-25] MEDS: ENSURE ENLIVE 237 ML LIQUID (VANILLA) PO SCH ×3 (09:43→17:00)
[2020-07-25] MEDS: DEXAMETHASONE SOD PHOSPHATE 10 MG/ML VIAL IV SCH (09:43)
[2020-07-25 10:08] LABS: IMMUNOGLOBULIN A, SERUM 198 mg/dL (61-437); IMMUNOGLOBULIN G, SERUM 702 mg/dL (603-1613); IMMUNOGLOBULIN M, SERUM 38 mg/dL (15-143)
--- NOTE | 2020-07-25 10:29 | NUR ---
patient with difficult vein able to start in g24 on left lower extremities,awaits midline as ordered.nursing sup made aware.
[2020-07-25 12:00] VITALS: BP 104/52
[2020-07-25] MEDS: METHIMAZOLE (5MG) 5 MG TABLET PO SCH (12:30)
--- NOTE | 2020-07-25 13:23 | NUR ---
UNABLE TO TOLERATE NGT INSERTION. PATIENT WAS DESSATING AND BLEEDING. PATIENT KEPT SHAKING HEAD DURING THE PROCEDURE WANTING TO REMOVE IT. INFORMED VALERY AERONAUTICAL INSPECTOR.
--- NOTE | 2020-07-25 15:15 | NUR ---
HEPARIN DRIP WAS DC BY [facility]. INFORMED PHARMACY DC HEPARIN DRIP.
[2020-07-25 16:00] VITALS: BP 95/55
[2020-07-25] MEDS: VANCOMYCIN 0.75 GM in IV D5W 250 ML IV SCH (16:08)
[2020-07-25 17:07] LABS: LYMPHOCYTES % (MANUAL) 60 % (16-48); MONOCYTES % (MANUAL) 2 % (0-11.0); NEUTROPHILS % (MANUAL) 34 (42-76); REACTIVE LYMPHOCYTES 4 % (0-0)
--- NOTE | 2020-07-25 17:54 | NUR ---
EKG DONE AND INFORMED VALERY
--- NOTE | 2020-07-25 19:10 | NUR ---
RECEIVED PT ON BED ASLEEP EASY TO WAKE UP/ VERY LETHARGIC, ON NON REBREATHER O2 15L SPO2 93% NO PAIN NOTED, TELE MONITOR READS VPACING AFIB 80'S, HAVE ALEX MIDLINE WITH ONGOIGN Addendum: 07/26/20 at 0353 by CASEY FORMAN RN CONTINUATION D5W@ 75ML/HR HAVE BILATERAL WRIST RESTRAINTS CIRCULATION WAS CHECKED DROPLET ISOLATION MAINTAINED BED ON LWOEST POSITION AND LOCKED SIDE RAILS UP WILL CONT TO MONITOR
--- NOTE | 2020-07-25 19:25 | NUR ---
RN CLOSING NOTE - MAU Patient in bed appears calm and relaxed. On non rebreather 15 tolerating well. Patient has L leg #24 and ALEX Midline running D5W @ 75ml/hr . All due meds given. Vital signs within normal limits. Kept clean and comfortable. Endorsed to plant operator/shift supervisor nurse for azar.
[2020-07-25 20:00] VITALS: BP 104/61
[2020-07-25] MEDS: IV D5W 1,000 ML IV PRN (20:58)
[2020-07-25] MEDS: HEPARIN SODIUM, PORCINE 5000 UNITS/1 ML VIAL SQ SCH (20:59)
--- NOTE | 2020-07-25 21:00 | NUR ---
COREG PO NOT GIVEN AND WASTED DUE TO PT IS VERY LETHARGIC AND VERY HIGH RISK ON ASPIRATION WILL CONT TO MONITOR
[2020-07-26] VITALS: BP 118/75
[2020-07-26 04:00] VITALS: BP 106/54
--- NOTE | 2020-07-26 06:00 | NUR ---
ABLE TO PUT NGTUBE PLACEMENT CHECKED VIA ASPIRATION AND FLUSHING OF AIR, MIDDLE SCHOOL SCIENCE TEACHER ORDER CHEST XRAY FOR PLACEMENT VERIFICATION BEFORE USING IT FOR MEDICATION NOTED AND CARRIED OUT
--- NOTE | 2020-07-26 07:30 | NUR ---
RN OPENING NOTE PATIENT CURRENTLY IN BED. LETHARGIC. RESPONDS TO NAME BY OPENING EYES AND NODS HEAD YES WHEN ASKED IF HE IS OKAY. PATIENT CLOSED HIS EYES AND DIDN'T ANSWER ANY MORE QUESTIONS WITH NODDING. PATIENT CURRENTLY ON NON REBREATHER @ 15L OXYGEN THERAPY. OXYGEN SATURATION 99%, NO S/S OF DISTRESS AT THIS TIME, NO PAIN REPORTED. TELE MONITOR READING SHOWS V PACING, A-FIB. ALEX MIDLINE AND LEFT LEG 22G IV INTACT AND PATENT, NO S/S OF INFECTION AT THIS TIME. ALL SAFETY MEASURES IN PLACE PER HOSPITAL POLICY. BED LOCKED IN LOWEST POSITION, CALL LIGHT WITHIN REACH. WILL CONTINUE TO MONITOR AND PROVIDE CARE.
[2020-07-26 08:00] VITALS: BP 120/76
[2020-07-26 08:12] LABS: BASOPHILS # (AUTO) 0.2 /CMM (0.0-0.2); BASOPHILS % (AUTO) 0.3 % (0.0-2.0); EOSINOPHILS % (AUTO) 0.1 % (0.0-6.0); HEMATOCRIT 37 % (39-51); HEMOGLOBIN 11.7 g/dL (13.5-17.5); LYMPHOCYTES # (AUTO) 30.2 /CMM (0.8-4.8); LYMPHOCYTES % (AUTO) 60.1 % (20.0-44.0); MEAN CORPUSCULAR HGB CONC 32 g/dl (31.0-36.0); MEAN CORPUSCULAR VOLUME 88 fL (80-96); MONOCYTES # (AUTO) 0.6 /CMM (0.1-1.30); MONOCYTES % (AUTO) 1.2 % (2.0-12.0); NEUTROPHILS # (AUTO) 19.3 /CMM (1.8-8.9); NEUTROPHILS % (AUTO) 38.3 % (43.0-81.0); PLATELET COUNT (AUTO) 116 /CMM (150-450); RED BLOOD CELL COUNT(AUTO) 4.18 MIL/uL (4.5-6.0)
--- NOTE | 2020-07-26 08:14 | NUR ---
PT ON BED ASLEEP EASY TO WAKE UP BUT STILL LETHARGIC STILL ON NON REBREATHER 15L SPO2 97% NO PAIN NOTED, ALL NEEDS ATTENDED, TELE MONITOR READS VPACING AFIB ON 90'S DROPLET ISOLATION FOR COVID MAINTAINED BED ON LOWEST POSITION AND LOCKED SIDE RAILS UPX2 CALL LIGHT WITHIN REACH WILL ENDORSE TO AM SHIFT NURSE
[2020-07-26 08:43] LABS: WHITE BLOOD COUNT (AUTO) 50.3 K/uL (4.3-11.0)
[2020-07-26 08:59] LABS: CALCIUM, SERUM 10.1 mg/dL (8.5-10.1); CARBON DIOXIDE 22 mmol/L (21-32); CHLORIDE 120 mmol/L (98-107); CREATININE 1.6 mg/dL (0.6-1.3); GLUCOSE 193 mg/dL (74-106); POTASSIUM 6.1 mmol/L (3.5-5.1); SODIUM SERUM 153 mmol/L (136-145)
[2020-07-26] MEDS: ENSURE ENLIVE 237 ML LIQUID (VANILLA) PO SCH (09:00)
[2020-07-26] MEDS: ALLOPURINOL 100 MG TABLET PO SCH (09:00)
[2020-07-26] MEDS: HOME MED MISCELLANEOUS PO SCH (09:00)
[2020-07-26] MEDS: CARVEDILOL 6.25 MG TABLET PO SCH (09:00)
[2020-07-26] MEDS: METHIMAZOLE (5MG) 5 MG TABLET PO SCH (09:00)
[2020-07-26 09:03] LABS: UREA NITROGEN, BLOOD 95 mg/dL (7-18)
[2020-07-26] MEDS: MEROPENEM 1 G in IV NS 0.9% 100 ML IV SCH ×2 (09:36→21:43)
[2020-07-26] MEDS: DEXAMETHASONE SOD PHOSPHATE 10 MG/ML VIAL IV SCH (09:36)
[2020-07-26] MEDS: HEPARIN SODIUM, PORCINE 5000 UNITS/1 ML VIAL SQ SCH ×2 (09:38→21:48)
[2020-07-26] MEDS: VANCOMYCIN 0.75 GM in IV D5W 250 ML IV SCH (10:24)
[2020-07-26] MEDS ORDERED: APIXABAN 2.5 MG TABLET PO SCH (11:15)
[2020-07-26] MEDS ORDERED: SODIUM POLYSTYRENE SULFONATE 15 G/60 ML BOTTLE PO ONE (11:30)
[2020-07-26] MEDS ORDERED: PHARMACY TO CHANGE PO MEDS TO GT/NG XX SCH (11:30)
[2020-07-26] MEDS ORDERED: FUROSEMIDE 40 MG/4 ML VIAL IV ONE (11:30)
[2020-07-26] MEDS ORDERED: HYDROCODONE/APAP 5/325MG TABLET GT PRN (11:51)
[2020-07-26] MEDS ORDERED: MAG HYDROX/AL HYDROX/SIMETH 30 ML UDC GT PRN (11:51)
[2020-07-26] MEDS ORDERED: MIDODRINE HCL (5MG) 5 MG TABLET GT PRN (11:52)
[2020-07-26] MEDS ORDERED: MAGNESIUM HYDROXIDE 30 ML UDC GT PRN (11:52)
[2020-07-26] MEDS ORDERED: ACETAMINOPHEN 650 MG/20.3 ML UDC GT PRN (11:53)
[2020-07-26] MEDS: Sodium Bicarbonate 50 MEQ in IV D5W 1,000 ML IV PRN (11:55)
[2020-07-26 12:00] VITALS: BP 118/74
[2020-07-26 13:51] LABS: LYMPHOCYTES % (MANUAL) 62 % (16-48); MONOCYTES % (MANUAL) 2 % (0-11.0); NEUTROPHILS % (MANUAL) 35 (42-76); REACTIVE LYMPHOCYTES 1 % (0-0)
[2020-07-26 16:00] VITALS: BP 92/62
[2020-07-26 16:36] LABS: CALCIUM, SERUM 10.4 mg/dL (8.5-10.1); CARBON DIOXIDE 22 mmol/L (21-32); CHLORIDE 120 mmol/L (98-107); CREATININE 1.7 mg/dL (0.6-1.3); GLUCOSE 281 mg/dL (74-106); POTASSIUM 5.6 mmol/L (3.5-5.1)
[2020-07-26 17:28] LABS: SODIUM SERUM 156 mmol/L (136-145); UREA NITROGEN, BLOOD 96 mg/dL (7-18)
--- NOTE | 2020-07-26 18:38 | NUR ---
NG TUBE PATIENT PULLED OUT NG TUBE AFTER RETURNING FROM RADIOLOGY.
--- NOTE | 2020-07-26 19:18 | NUR ---
RN CLOSING NOTE PATIENT CURRENTLY IN BED. LETHARGIC. PATIENT CURRENTLY ON NON REBREATHER @ 15L OXYGEN THERAPY. OXYGEN SATURATION 99%, NO S/S OF DISTRESS AT THIS TIME, NO PAIN REPORTED. TELE MONITOR READING SHOWS V PACING, A-FIB. ALEX MIDLINE AND LEFT LEG 22G IV INTACT AND PATENT, NO S/S OF INFECTION AT THIS TIME. ALL SAFETY MEASURES IN PLACE PER HOSPITAL POLICY. BED LOCKED IN LOWEST POSITION, CALL LIGHT WITHIN REACH. WILL ENDORSE TO CURER ACID DRUM FOR PARAMJIT..
[2020-07-26 20:00] VITALS: BP 95/52
--- NOTE | 2020-07-26 20:10 | NUR ---
PATIENT ON NON REBREATHER @ 15L OXYGEN, OXYGEN SATURATION > 93%, NO SOB/ OR S/S OF DISTRESS AT THIS TIME, V PACING, A-FIB ON TELE MONITOR, ALEX MIDLINE AND LEFT LEG 22G IV INTACT AND PATENT, NO S/S OF INFECTION AT THIS TIME, IVF INFUSING ORDERED, PATIENT TOLERATED WELL, ALL SAFETY MEASURES IN PLACE, BED LOCKED IN LOWEST POSITION, CALL LIGHT WITHIN REACH, WILL CONTINUE TO MONITOR CLOSELY.
[2020-07-26] MEDS: CARVEDILOL 6.25 MG TABLET GT SCH (21:00)
[2020-07-27] VITALS: BP_SYST 104; BP_SYST 105; BP_DIAS 53; BP_DIAS 66
[2020-07-27] MEDS: VANCOMYCIN 0.75 GM in IV D5W 250 ML IV SCH ×2 (02:54→20:38)
[2020-07-27 04:00] VITALS: BP 112/67
--- NOTE | 2020-07-27 07:01 | NUR ---
PATIENT CONT ON NON REBREATHER @ 15L OXYGEN, OXYGEN SATURATION > 88 MOSTLY IN LOW 90S%, NO SOB/ OR S/S OF DISTRESS DURING NIGHT, IVF INFUSING ORDERED, PATIENT TOLERATED WELL, ALL SAFETY MEASURES IN PLACE, BED LOCKED IN LOWEST POSITION, CALL LIGHT WITHIN REACH, WILL ENDORSE CONT OF CARE TO ONCOMING NURSE.
[2020-07-27 07:28] LABS: BASOPHILS # (AUTO) 0.1 /CMM (0.0-0.2); BASOPHILS % (AUTO) 0.2 % (0.0-2.0); EOSINOPHILS % (AUTO) 0.2 % (0.0-6.0); HEMATOCRIT 37 % (39-51); HEMOGLOBIN 11.4 g/dL (13.5-17.5); LYMPHOCYTES # (AUTO) 33.6 /CMM (0.8-4.8); LYMPHOCYTES % (AUTO) 65.5 % (20.0-44.0); MEAN CORPUSCULAR HGB CONC 31 g/dl (31.0-36.0); MEAN CORPUSCULAR VOLUME 89 fL (80-96); MONOCYTES # (AUTO) 0.8 /CMM (0.1-1.30); MONOCYTES % (AUTO) 1.5 % (2.0-12.0); NEUTROPHILS # (AUTO) 16.7 /CMM (1.8-8.9); NEUTROPHILS % (AUTO) 32.6 % (43.0-81.0); PLATELET COUNT (AUTO) 118 /CMM (150-450); RED BLOOD CELL COUNT(AUTO) 4.17 MIL/uL (4.5-6.0)
--- NOTE | 2020-07-27 07:30 | NUR ---
RN OPENING NOTE PATIENT CURRENTLY IN BED. LETHARGIC. PATIENT CURRENTLY ON NON REBREATHER @ 15L OXYGEN THERAPY. OXYGEN SATURATION 99%, NO S/S OF DISTRESS AT THIS TIME, NO PAIN REPORTED. TELE MONITOR READING SHOWS V PACING, A-FIB. ALEX MIDLINE AND LEFT LEG 22G IV INTACT AND PATENT, NO S/S OF INFECTION AT THIS TIME. ALL SAFETY MEASURES IN PLACE PER HOSPITAL POLICY. BED LOCKED IN LOWEST POSITION, CALL LIGHT WITHIN REACH. WILL ENDORSE TO HAMMERER HELPER FOR PARAMJIT..
[2020-07-27 08:00] VITALS: BP 129/58
[2020-07-27 08:01] LABS: ALANINE AMINOTRANSFERASE 108 U/L (12-78); ALKALINE PHOSPHATASE 112 U/L (46-116); ASPARTATE AMINOTRANSFERASE 127 U/L (15-37); BILIRUBIN,TOTAL 1.2 mg/dL (0.2-1.0); CALCIUM, SERUM 9.9 mg/dL (8.5-10.1); CARBON DIOXIDE 28 mmol/L (21-32); CHLORIDE 123 mmol/L (98-107); CREATININE 1.6 mg/dL (0.6-1.3); GLUCOSE 186 mg/dL (74-106); MAGNESIUM 2.5 mg/dL (1.8-2.4); PHOSPHORUS 4.2 mg/dL (2.5-4.9); POTASSIUM 3.9 mmol/L (3.5-5.1); TOTAL PROTEIN, SERUM 6.6 g/dL (6.4-8.2)
[2020-07-27 08:10] LABS: WHITE BLOOD COUNT (AUTO) 51.3 K/uL (4.3-11.0)
[2020-07-27] MEDS ORDERED: HOME MED MISCELLANEOUS PO SCH (09:00)
[2020-07-27] MEDS: CARVEDILOL 6.25 MG TABLET GT SCH ×2 (09:00→20:48)
[2020-07-27] MEDS: METHIMAZOLE (5MG) 5 MG TABLET GT SCH (09:00)
[2020-07-27] MEDS: ALLOPURINOL 100 MG TABLET GT SCH (09:00)
[2020-07-27 09:40] LABS: BAND % (MANUAL) 2 % (0.0-5.0); LYMPHOCYTES % (MANUAL) 58 % (16-48); MONOCYTES % (MANUAL) 1 % (0-11.0); NEUTROPHILS % (MANUAL) 39 (42-76)
[2020-07-27 09:58] LABS: SODIUM SERUM 162 mmol/L (136-145); UREA NITROGEN, BLOOD 91 mg/dL (7-18)
[2020-07-27] MEDS: APIXABAN 2.5 MG TABLET PO SCH ×2 (10:30→17:55)
[2020-07-27] MEDS: Sodium Bicarbonate 50 MEQ in IV D5W 1,000 ML IV PRN (10:32)
[2020-07-27] MEDS: MEROPENEM 1 G in IV NS 0.9% 100 ML IV SCH ×2 (10:32→20:38)
[2020-07-27] MEDS ORDERED: IV D5W 1,000 ML IV ONE (11:00)
[2020-07-27] MEDS: DEXAMETHASONE SOD PHOSPHATE 10 MG/ML VIAL IV SCH (11:27)
--- NOTE | 2020-07-27 11:34 | NUR ---
UNABLE TO GIVE PO/NG MEDICATIONS DUE TO PATIENT PULLING OUT THEIR NG TUBE.
[2020-07-27 12:00] VITALS: BP 110/58
[2020-07-27 14:08] LABS: CARBOHYDRATE AG 19-9 26 U/mL (0-35)
[2020-07-27 16:00] VITALS: BP 105/64
[2020-07-27] MEDS: GLUCERNA 1.2 1,000 ML BOTTLE GT PRN (17:50)
--- NOTE | 2020-07-27 19:00 | NUR ---
RN OPENING NOTE RECEIVED PATIENT IN BED RESTING ALERT,CONFUSED OPEN EYES ON 15L OXYGEN VIA NON REBREATHER MASK O2:97% ON NGT CHECKED PLACEMENT IS IN PLACE WITH NO RESIDUAL,ON GLUCERNA 1.2 20CC/HR,HEAD OF BED ELEVATED PREVENT ASPIRATION,IV SITE IS ON LEFT UPPER ARM MID LINE,INTACT PATENT SAFETY MEASURE IMPLEMENT BED IS IN LOW POSITION AND LOCKED CONTINUE TO MONITOR.
--- NOTE | 2020-07-27 19:23 | NUR ---
RN CLOSING NOTE PATIENT CURRENTLY IN BED. LETHARGIC. PATIENT CURRENTLY ON NON REBREATHER @ 15L OXYGEN THERAPY. OXYGEN SATURATION 94%, NO S/S OF DISTRESS AT THIS TIME, NO PAIN REPORTED. TELE MONITOR READING SHOWS V PACING, A-FIB. ALEX MIDLINE AND LEFT LEG 22G IV INTACT AND PATENT, NO S/S OF INFECTION AT THIS TIME. NG TUBE PLACED AND VERIFIED PLACEMENT WITH KUB ALL SAFETY MEASURES IN PLACE PER HOSPITAL POLICY. BED LOCKED IN LOWEST POSITION, CALL LIGHT WITHIN REACH. WILL ENDORSE TO MANAGER OF SOFTWARE FOR PARAMJIT..
[2020-07-27 20:00] VITALS: BP 97/69
--- NOTE | 2020-07-27 22:45 | NUR ---
RN NOTE PATIENT REMAINS ON ALERT CONFUSED ON 15L OXYGEN VIA NON REBREATHER MASK O2:97% ENDORSE TO KEANU FOR CONTINUATION OF CARE
--- NOTE | 2020-07-27 22:50 | NUR ---
RN OPENING NOTE RECEIVED PATIENT IN BED. ISOLATION PRECAUTIONS IN PLACE FOR POSITIVE COVID RESULT. PATIENT ALERT & ORIENTED X2 WITH PERIODS OF CONFUSION. NO RESP DISTRESS OR SOB NOTED. PT IS ON NONREBREATHER MASK AT 15L TOLERATING WELL SATURATING WELL AT 92%. PT NEEDS TO BE REORIENTED/RE EDUCATED ABOUT KEEPING MASK ON. PATIENT RIGHT UPPER ARM MIDLINE IN PLACE, INTACT, PATENT, FLUSHED ASEPTICALLY. PT HAS GTUBE, AUSCULTATED TO CONFIRM PLACEMENT. PATENT. WITH JEVITY 1.2 RUNNING AT 20CC/HR. RESIDUAL OF LESS THAN 10CC NOTED. PATIENT SAFETY MEASURES IN PLACE. HOB ELEVATED. SIDE RAILS UP X2. BED LOCKED IN LOWEST POSITION WITH BED ALARM ON. CALL LIGHT WITHIN REACH. WILL CONTINUE TO MONITOR.
[2020-07-28] VITALS: BP 105/66
[2020-07-28 04:00] VITALS: BP 98/66
[2020-07-28 06:31] LABS: BASOPHILS # (AUTO) 0.2 /CMM (0.0-0.2); BASOPHILS % (AUTO) 0.3 % (0.0-2.0); EOSINOPHILS % (AUTO) 0.1 % (0.0-6.0); HEMATOCRIT 40 % (39-51); HEMOGLOBIN 12.1 g/dL (13.5-17.5); LYMPHOCYTES # (AUTO) 39.6 /CMM (0.8-4.8); LYMPHOCYTES % (AUTO) 63.3 % (20.0-44.0); MEAN CORPUSCULAR HGB CONC 30 g/dl (31.0-36.0); MEAN CORPUSCULAR VOLUME 90 fL (80-96); MONOCYTES % (AUTO) 1.6 % (2.0-12.0); NEUTROPHILS # (AUTO) 21.7 /CMM (1.8-8.9); NEUTROPHILS % (AUTO) 34.7 % (43.0-81.0); PLATELET COUNT (AUTO) 171 /CMM (150-450); RED BLOOD CELL COUNT(AUTO) 4.42 MIL/uL (4.5-6.0)
[2020-07-28 07:00] LABS: WHITE BLOOD COUNT (AUTO) 62.5 K/uL (4.3-11.0)
--- NOTE | 2020-07-28 07:01 | NUR ---
RN CLOSING NOTES NO SIGNIFICANT CHANGES. PT STILL ON NON REBREATHER MASK AT 15L SATURATING WELL. NO SOB OR RESP DISTRESS. IV SITE FLUSHED. PATIENT SAFETY MEASURES IN PLACE. CARDIAC MONITORING IN PLACE, PT HAS V PACING WITH OCCASIONAL PVCS BASELINE TO PT. HOB ELEVATED. SIDE RAILS UP X2. BED LOCKED IN LOWEST POSITION WITH BED ALARM ON. CALL LIGHT WITHIN REACH. WILL ENDORSE TO AM NURSE FOR CONTINUATION OF CARE..
[2020-07-28 07:06] LABS: CALCIUM, SERUM 9.9 mg/dL (8.5-10.1); CARBON DIOXIDE 30 mmol/L (21-32); CHLORIDE 122 mmol/L (98-107); CREATININE 1.5 mg/dL (0.6-1.3); GLUCOSE 149 mg/dL (74-106); POTASSIUM 3.3 mmol/L (3.5-5.1); UREA NITROGEN, BLOOD 79 mg/dL (7-18)
[2020-07-28 07:13] LABS: SODIUM SERUM 163 mmol/L (136-145)
--- NOTE | 2020-07-28 07:14 | NUR ---
SODIUM CRITICAL OF 163 NOTED. 162 PREVIOUS DAY. WILL ENDORSE TO AM NURSE
--- NOTE | 2020-07-28 07:30 | NUR ---
MASTIC FLOOR LAYER OPENING NOTES PT REMAINS AWAKE, BUT WITH CONFUSION OPEN EYES ON 15L OXYGEN VIA NON REBREATHER MASK O2:97% ON NGT CHECKED PLACEMENT IS IN PLACE WITH NO RESIDUAL,ON GLUCERNA 1.2 20CC/HR,HEAD OF BED ELEVATED PREVENT ASPIRATION,IV SITE IS ON LEFT UPPER ARM MID LINE,INTACT PATENT SAFETY MEASURE IMPLEMENT BED IS IN LOW POSITION AND LOCKED FOR SAFETY. WILL CONTINUE TO MONITOR.
[2020-07-28 08:00] VITALS: BP 90/55
[2020-07-28 09:54] LABS: NEUTROPHILS % (MANUAL) 18 (42-76)
[2020-07-28 09:56] LABS: LYMPHOCYTES % (MANUAL) 81 % (16-48); MONOCYTES % (MANUAL) 1 % (0-11.0)
[2020-07-28] MEDS ORDERED: POTASSIUM CHLORIDE 20 MEQ TAB.PRT.SR PO ONE (10:00)
[2020-07-28 10:48] LABS: ABG BASE EXCESS 0.8 mmol/L; ABG OXYGEN SATURATION 88.9 % (92.0-98.5); ABG PCO2 33.7 mmHg (35.0-45.0); ABG PO2 56.1 mmHg (75.0-100.0); AaDO2 623.2 mmHg; COHb 0.8 % (0.5-1.5); MetHb 0.1 % (0.0-1.5); O2Hb 88.1 % (94.0-97.0); SITE, ABG Right Brachial; VENT MODE, BG NRB 15L 100%
[2020-07-28] MEDS: METHIMAZOLE (5MG) 5 MG TABLET GT SCH (10:48)
[2020-07-28] MEDS: DEXAMETHASONE SOD PHOSPHATE 10 MG/ML VIAL IV SCH (10:50)
[2020-07-28] MEDS: CARVEDILOL 6.25 MG TABLET GT SCH ×2 (10:51→21:58)
[2020-07-28] MEDS: ALLOPURINOL 100 MG TABLET GT SCH (10:51)
[2020-07-28] MEDS: APIXABAN 2.5 MG TABLET PO SCH ×2 (10:56→16:28)
[2020-07-28] MEDS: MEROPENEM 1 G in IV NS 0.9% 100 ML IV SCH ×2 (11:07→21:57)
[2020-07-28 12:00] VITALS: BP 101/53
[2020-07-28] MEDS ORDERED: IV D5W 1,000 ML IV ONE (13:00)
[2020-07-28] MEDS: VANCOMYCIN 0.75 GM in IV D5W 250 ML IV SCH (15:56)
[2020-07-28 16:00] VITALS: BP 101/53
--- NOTE | 2020-07-28 18:52 | NUR ---
RN CLOSING NOTES PATIENT REMAINS IN BED. LETHARGIC. PATIENT CURRENTLY ON NON REBREATHER @ 15L OXYGEN THERAPY. OXYGEN SATURATION 94%, NO S/S OF DISTRESS AT THIS TIME, NO PAIN REPORTED. TELE MONITOR READING SHOWS V PACING, A-FIB. ALEX MIDLINE AND LEFT LEG 22G IV INTACT AND PATENT, NO S/S OF INFECTION AT THIS TIME. NG TUBE PLACED AND VERIFIED PLACEMENT WITH KUB ALL SAFETY MEASURES IN PLACE PER HOSPITAL POLICY. BED LOCKED IN LOWEST POSITION, CALL LIGHT WITHIN REACH. WILL ENDORSE TO TEAM OTR TRUCK DRIVER FOR PARAMJIT..
[2020-07-28 20:00] VITALS: BP 109/64
--- NOTE | 2020-07-28 20:00 | NUR ---
RN NOTE RECEIVED PATIENT IN BED IN SEMI-FOWLERS POSITION. PT LETHARGIC. PATIENT CURRENTLY ON NON REBREATHER @ 15L OXYGEN THERAPY. OXYGEN SATURATION 92-94%, NO S/S OF DISTRESS AT THIS TIME, TELE MONITOR READING SHOWS V PACING,WITH OCCASIOANAL PVC'S. ALEX MIDLINE AND LEFT LEG 22G IV INTACT, PATENT AND FLUSHING WELL. GTF GLUCERNA RUNNING AT 20 ML/HR WITH MINIMAL RESIDUAL. NO S/S OF INFECTION AT THIS TIME. SIDE RAILS UP X 2 CALL LIGHT WITHIN REACH, SAFETY MEASURES IN PLACE WILL CONT. TO MONITOR PT
[2020-07-29] VITALS: BP 121/76
[2020-07-29 04:00] VITALS: BP 94/62
[2020-07-29 06:26] LABS: BASOPHILS # (AUTO) 0.2 /CMM (0.0-0.2); BASOPHILS % (AUTO) 0.2 % (0.0-2.0); EOSINOPHILS % (AUTO) 0.2 % (0.0-6.0); HEMATOCRIT 39 % (39-51); HEMOGLOBIN 11.8 g/dL (13.5-17.5); LYMPHOCYTES % (AUTO) 65.2 % (20.0-44.0); MEAN CORPUSCULAR HGB CONC 30 g/dl (31.0-36.0); MEAN CORPUSCULAR VOLUME 91 fL (80-96); MONOCYTES # (AUTO) 1.4 /CMM (0.1-1.30); MONOCYTES % (AUTO) 1.9 % (2.0-12.0); NEUTROPHILS # (AUTO) 22.9 /CMM (1.8-8.9); NEUTROPHILS % (AUTO) 32.5 % (43.0-81.0); PLATELET COUNT (AUTO) 167 /CMM (150-450)
[2020-07-29 06:37] LABS: WHITE BLOOD COUNT (AUTO) 70.6 K/uL (4.3-11.0)
--- NOTE | 2020-07-29 06:48 | NUR ---
RN NOTE RECEIVED CALL FROM LAB WBC 70.6. WILL ENDORSE TO AM RN, CHARGE NURSE AWKAYLEY.
[2020-07-29 07:03] LABS: CALCIUM, SERUM 9.6 mg/dL (8.5-10.1); CARBON DIOXIDE 28 mmol/L (21-32); CHLORIDE 125 mmol/L (98-107); GLUCOSE 214 mg/dL (74-106); POTASSIUM 4.4 mmol/L (3.5-5.1)
[2020-07-29 07:42] LABS: SODIUM SERUM 165 mmol/L (136-145); UREA NITROGEN, BLOOD 104 mg/dL (7-18)
[2020-07-29] MEDS: ALLOPURINOL 100 MG TABLET GT SCH (08:46)
[2020-07-29] MEDS: MEROPENEM 1 G in IV NS 0.9% 100 ML IV SCH ×2 (08:46→20:23)
[2020-07-29] MEDS: METHIMAZOLE (5MG) 5 MG TABLET GT SCH (08:46)
[2020-07-29] MEDS: DEXAMETHASONE SOD PHOSPHATE 10 MG/ML VIAL IV SCH (08:46)
[2020-07-29] MEDS: APIXABAN 2.5 MG TABLET PO SCH ×2 (08:49→18:17)
[2020-07-29] MEDS: CARVEDILOL 6.25 MG TABLET GT SCH ×2 (09:00→21:06)
[2020-07-29 09:52] LABS: LYMPHOCYTES % (MANUAL) 57 % (16-48); MONOCYTES % (MANUAL) 6 % (0-11.0); NEUTROPHILS % (MANUAL) 37 (42-76)
[2020-07-29 11:07] VITALS: BP 97/61
[2020-07-29 14:48] VITALS: BP 113/64
[2020-07-29] MEDS: GLUCERNA 1.2 1,000 ML BOTTLE GT PRN (15:17)
[2020-07-29] MEDS: IV D5W 1,000 ML IV PRN ×2 (16:06→22:13)
[2020-07-29 16:46] VITALS: BP 123/79
[2020-07-29 17:11] LABS: BILIRUBIN,URINE NEGATIVE (NEGATIVE); BLOOD, URINE MODERATE Ery/uL (NEGATIVE); COLOR,URINE YELLOW (YELLOW); LEUKOCYTE ESTERASE ,URINE NEGATIVE (NEGATIVE); NITRITE, URINE NEGATIVE (NEGATIVE); PROTEIN,URINE 30 mg/dl (NEGATIVE); UGLUCOSE 250 MG/DL mg/dL (NEGATIVE); UROBILINOGEN,URINE 0.2 EU/dL (0.2)
[2020-07-29 17:44] LABS: BACTERIA,URINE RARE /HPF (None Seen); FINE GRANULAR CASTS,URINE Few /LPF (None Seen); URINE AMORPHOUS URATE Moderate /HPF (None Seen)
--- NOTE | 2020-07-29 19:40 | NUR ---
FINE ARTIST OPENING NOTES RECEIVED PATIENT IN BED, ALERT AND ORIENTED X 1. NON VERBAL BUT RESPONDS TO TACTILE AND PAINFUL STIMULI. BREATHING REGULAR AND UNLABORED ON NON-REBREATHER MASK AT 15L/MIN, LATEST SPO2 95%. LEFT UPPER ARM MIDLINE INTACT AND PATENT, FLUSHING WELL WITH NO BLEEDING OR S/S OF INFILTRATION NOTED. ON CARDIAC MONITORING WITH V-PACING/OCCASIONAL PVC's AT 98bpm. NGT PATENT WITH NO RESIDUAL ASPIRATED. ON BILATERAL SOFT WRIST RESTRAINTS, SKIN ASSESSMENT AND CIRCULATION CHECK DONE. NO S/S OF PAIN/DISCOMFORT SEEN AT THIS TIME. BED LOW AND LOCKED ON SEMI FOWLERS POSITION. CALL LIGHT IN REACH. ON ISOLATION FOR COVID19, PROPER HAND WASHING AND ISOLATION PRECAUTIONS OBSERVED. WILL CONTINUE TO MONITOR.
--- NOTE | 2020-07-29 19:40 | NUR ---
Patient is alert and oriented x2. He responds to touch and name. Remains on 15l non rebreather mask with saturation 94%. IV lines intact and patent , IV fluid running as ordered. NO complains of pain. B/L restrains present; checked Q2H. NG tube patent and Glucerna running at 20ml/hr. Urine sent to lab for culture. Will endorse to next shift for PARAMJIT
[2020-07-29 19:44] LABS: CREATININE, URINE 81.1 MG/DL (30.0-125.0); URINE TOTAL PROTEIN 125.6 mg/dL (0-11.9)
[2020-07-29 20:00] VITALS: BP 128/68
[2020-07-29 22:35] LABS: EOSINOPHIL,URINE Rare
[2020-07-29 23:20] LABS: SQUAMOUS EPITHELIAL CELL,UR 0-2 /HPF (None Seen)
[2020-07-30] VITALS: BP 90/54
[2020-07-30 04:00] VITALS: BP 94/64
[2020-07-30] MEDS: IV D5W 1,000 ML IV PRN ×3 (04:09→23:09)
--- NOTE | 2020-07-30 06:40 | NUR ---
PRODUCT SUPPORT SALES REPRESENTATIVE CLOSING NOTES PATIENT IN BED, ALERT AND ORIENTED X 1. NON VERBAL BUT RESPONDS TO TACTILE AND PAINFUL STIMULI. AFEBRILE WITH NO S/S OF DISTRESS OBSERVED. LEFT UPPER ARM MIDLINE PATENT AND FLUSHING WELL. MAINTAINED ON CARDIAC MONITORING WITH A.FIB AT 88bpm. NGT PATENT, ON ASPIRATION PRECAUTIONS.MAINTAINED ON BILATERAL SOFT WRIST RESTRAINTS. NO S/S OF PAIN/DISCOMFORT NOTED AT THIS TIME. BED LOW AND LOCKED ON SEMI FOWLERS POSITION. CALL LIGHT IN REACH. WILL ENDORSE TO MORNING SHIFT FOR PARAMJIT.
[2020-07-30 06:44] LABS: BASOPHILS # (AUTO) 0.4 /CMM (0.0-0.2); BASOPHILS % (AUTO) 0.7 % (0.0-2.0); HEMATOCRIT 36 % (39-51); HEMOGLOBIN 10.8 g/dL (13.5-17.5); LYMPHOCYTES # (AUTO) 39.4 /CMM (0.8-4.8); LYMPHOCYTES % (AUTO) 60.9 % (20.0-44.0); MEAN CORPUSCULAR HGB CONC 30 g/dl (31.0-36.0); MEAN CORPUSCULAR VOLUME 93 fL (80-96); MONOCYTES # (AUTO) 1.2 /CMM (0.1-1.30); MONOCYTES % (AUTO) 1.8 % (2.0-12.0); NEUTROPHILS # (AUTO) 23.7 /CMM (1.8-8.9); NEUTROPHILS % (AUTO) 36.6 % (43.0-81.0); PLATELET COUNT (AUTO) 164 /CMM (150-450); RED BLOOD CELL COUNT(AUTO) 3.91 MIL/uL (4.5-6.0)
[2020-07-30 07:10] LABS: WHITE BLOOD COUNT (AUTO) 64.7 K/uL (4.3-11.0)
[2020-07-30 07:34] LABS: CALCIUM, SERUM 8.9 mg/dL (8.5-10.1); CARBON DIOXIDE 27 mmol/L (21-32); CHLORIDE 114 mmol/L (98-107); CREATININE 1.9 mg/dL (0.6-1.3); MAGNESIUM 2.8 mg/dL (1.8-2.4); PHOSPHORUS 4.5 mg/dL (2.5-4.9); POTASSIUM 4.2 mmol/L (3.5-5.1); SODIUM SERUM 151 mmol/L (136-145)
[2020-07-30 08:00] VITALS: BP 109/68
--- NOTE | 2020-07-30 08:06 | NUR ---
PROPOSAL ANALYST OPEN NOTES PATIENT IS A/O X 1-2 WITH NO SIGNS OF DISTRESS ON A NON-REBREATHER AT 15 L/MIN SPO2 97%. IV L LEG #24G SL AND L UA MIDLINE RUNNING D5W AT 175 ML/HR. NG TUBE INTACT AND FEEDING GLUCERNA 1.2 AT 30 ML/HR. NO COMPLAIN OF PAIN AT THIS TIME. TELE MONITOR. WRIST RESTRAINTS ON WITH GOOD CIRCULATION ON WRIST AND PULSE PRESENT. SAFETY MEASURES ARE APPLIED, BED IS IN LOW POSITION SIDE RAILS UP X 2. CALL LIGHT WITHIN REACH. WILL CONTINUE TO MONITOR.
[2020-07-30 08:27] LABS: GLUCOSE 408 mg/dL (74-106); UREA NITROGEN, BLOOD 107 mg/dL (7-18)
[2020-07-30] MEDS: CARVEDILOL 6.25 MG TABLET GT SCH ×2 (09:00→21:01)
[2020-07-30 09:18] LABS: ALANINE AMINOTRANSFERASE 56 U/L (12-78); ALBUMIN 1.6 g/dL (3.4-5.0); ALKALINE PHOSPHATASE 115 U/L (46-116); ASPARTATE AMINOTRANSFERASE 67 U/L (15-37); BILIRUBIN,TOTAL 1.1 mg/dL (0.2-1.0); TOTAL PROTEIN, SERUM 6.1 g/dL (6.4-8.2)
[2020-07-30 09:49] LABS: LYMPHOCYTES % (MANUAL) 58 % (16-48); NEUTROPHILS % (MANUAL) 42 (42-76)
[2020-07-30] MEDS: APIXABAN 2.5 MG TABLET PO SCH ×2 (09:55→17:20)
[2020-07-30] MEDS: ALLOPURINOL 100 MG TABLET GT SCH (09:55)
[2020-07-30] MEDS: MEROPENEM 1 G in IV NS 0.9% 100 ML IV SCH (09:56)
[2020-07-30] MEDS ORDERED: GLUCERNA 1.2 1,000 ML BOTTLE GT PRN (10:00)
[2020-07-30] MEDS: DEXAMETHASONE SOD PHOSPHATE 10 MG/ML VIAL IV SCH (10:07)
[2020-07-30 12:00] VITALS: BP 125/75
[2020-07-30 16:00] VITALS: BP 91/58
--- NOTE | 2020-07-30 19:58 | NUR ---
RN NOTES PATIENT IS A/O X 1-2 BREATHING EVEN AND UNLABORED. ON A NON-REBREATHER AT 15 LPM, SPO2 97%. IV L LEG #24G SL AND L UA MIDLINE RUNNING D5W AT 175 ML/HR, INFUSING WELL. NO S/S OF ANY INFECTION. NG TUBE INTACT AND FEEDING GLUCERNA 1.2 AT 45 ML/HR, TOLERATING WELL. NO S/S OF ANY PAIN AT THIS TIME. TELE MONITOR HR 80'S. BILATERAL SOFT WRIST RESTRAINTS ON WITH GOOD CIRCULATION ON WRIST AND PULSE PRESENT. BED LOCKED AND IN LOWEST POSITION. SIDE RAILS UP X2. SAFETY MEASURES IMPLEMENTED. CALL LIGHT WITHIN REACH. WILL CONTINUE TO MONITOR.
[2020-07-30 20:00] VITALS: BP 124/75
--- NOTE | 2020-07-30 20:15 | NUR ---
RETINAL ANGIOGRAPHER CLOSED NOTES PATIENT IS A/O X 1-2 WITH NO SIGNS OF DISTRESS ON A NON-REBREATHER AT 15 L/MIN SPO2 97%. IV L LEG #24G SL AND L UA MIDLINE RUNNING D5W AT 175 ML/HR. NG TUBE INTACT AND FEEDING GLUCERNA 1.2 AT 30 ML/HR. NO COMPLAIN OF PAIN AT THIS TIME. TELE MONITOR. WRIST RESTRAINTS ON WITH GOOD CIRCULATION ON WRIST AND PULSE PRESENT. PATIENT KEPT CLEAN AND DRY. ALL NEEDS, CARE, TREATMENT,AND MEDICATIONS WERE ADMINISTERED ANTICIPATED PER ORDER. SAFETY MEASURES ARE APPLIED, BED IS IN LOW POSITION SIDE RAILS UP X 2. CALL LIGHT WITHIN REACH WILL ENDORSE TO THE IT ARCHITECTURE ANALYST NURSE.
[2020-07-31] VITALS (31 sets, daily range): BP systolic 50–119; BP diastolic 27–68
[2020-07-31] MEDS: IV D5W 1,000 ML IV PRN (05:41)
--- NOTE | 2020-07-31 06:59 | NUR ---
RN NOTES PATIENT IS A/O X 1-2, LETHARGIC. ON A NON-REBREATHER AT 15 LPM, SPO2 97%. IV L LEG #24G SL AND L UA MIDLINE RUNNING D5W AT 175 ML/HR, INFUSING WELL. NO S/S OF ANY INFECTION. NG TUBE INTACT ON LEFT NARE AND FEEDING GLUCERNA 1.2 AT 55 ML/HR, TOLERATING WELL. RESIDUAL 10ML NOTED. NO S/S OF ANY PAIN AT THIS TIME. TELE MONITOR V-PACING 70'S. BED LOCKED AND IN LOWEST POSITION. SIDE RAILS UP X2. SAFETY MEASURES IMPLEMENTED. CALL LIGHT WITHIN REACH. WILL ENDORSE TO NEXT SHIFT.
--- NOTE | 2020-07-31 07:37 | NUR ---
SUPERVISOR ASSEMBLY AND PACKING OPEN NOTES PATIENT IS SLEEPING WITH NO SIGNS OF DISTRESS ON A NON-REBREATHER AT 15 L/MIN SPO2 97%. IV L LEG #24G SL AND L UA MIDLINE RUNNING D5W AT 175 ML/HR. NG TUBE INTACT AND FEEDING GLUCERNA 1.2 AT 55 ML/HR. NO COMPLAIN OF PAIN AT THIS TIME. TELE MONITOR. SAFETY MEASURES ARE APPLIED, BED IS IN LOW POSITION SIDE RAILS UP X 2. CALL LIGHT WITHIN REACH. WILL CONTINUE TO MONITOR.
[2020-07-31 08:10] LABS: BASOPHILS # (AUTO) 0.5 /CMM (0.0-0.2); BASOPHILS % (AUTO) 0.7 % (0.0-2.0); HEMATOCRIT 37 % (39-51); HEMOGLOBIN 10.9 g/dL (13.5-17.5); LYMPHOCYTES # (AUTO) 41.1 /CMM (0.8-4.8); LYMPHOCYTES % (AUTO) 58.4 % (20.0-44.0); MEAN CORPUSCULAR HGB CONC 29 g/dl (31.0-36.0); MEAN CORPUSCULAR VOLUME 94 fL (80-96); MONOCYTES # (AUTO) 0.6 /CMM (0.1-1.30); MONOCYTES % (AUTO) 0.9 % (2.0-12.0); NEUTROPHILS # (AUTO) 28.2 /CMM (1.8-8.9); PLATELET COUNT (AUTO) 219 /CMM (150-450); RED BLOOD CELL COUNT(AUTO) 3.95 MIL/uL (4.5-6.0)
[2020-07-31 08:17] LABS: CARBON DIOXIDE 26 mmol/L (21-32); CHLORIDE 108 mmol/L (98-107); CREATININE 1.4 mg/dL (0.6-1.3); SODIUM SERUM 142 mmol/L (136-145); WHITE BLOOD COUNT (AUTO) 70.4 K/uL (4.3-11.0)
[2020-07-31 08:24] LABS: GLUCOSE 467 mg/dL (74-106); UREA NITROGEN, BLOOD 88 mg/dL (7-18)
[2020-07-31 08:53] LABS: C-REACTIVE PROTEIN 13.9 mg/dL (0.0-0.9)
--- NOTE | 2020-07-31 09:00 | NUR ---
K 7.0 GLUCOSE 465 AND BUN 88 was notified to and orders obtained
[2020-07-31] MEDS: CARVEDILOL 6.25 MG TABLET GT SCH (09:08)
[2020-07-31] MEDS: ALLOPURINOL 100 MG TABLET GT SCH (09:08)
[2020-07-31] MEDS: APIXABAN 2.5 MG TABLET PO SCH ×2 (09:09→16:41)
[2020-07-31] MEDS: DEXAMETHASONE SOD PHOSPHATE 10 MG/ML VIAL IV SCH (09:10)
[2020-07-31 09:50] LABS: LYMPHOCYTES % (MANUAL) 67 % (16-48); NEUTROPHILS % (MANUAL) 32 (42-76)
[2020-07-31 09:51] LABS: MONOCYTES % (MANUAL) 1 % (0-11.0)
[2020-07-31] MEDS ORDERED: DEXTROSE 50%-WATER 50 ML DISP.SYRIN IVP ONE (10:00)
[2020-07-31] MEDS ORDERED: SODIUM POLYSTYRENE SULFONATE 15 G/60 ML BOTTLE GT ONE (10:00)
[2020-07-31] MEDS ORDERED: INSULIN REGULAR, HUMAN 100 UNIT/ML 3 ML VIAL IV ONE (10:00)
[2020-07-31 10:10] LABS: ABG BASE EXCESS -2.4 mmol/L; ABG PCO2 61.3 mmHg (35.0-45.0); ABG PH 7.249 (7.350-7.450); ABG PO2 98.9 mmHg (75.0-100.0); AaDO2 407.1 mmHg; COHb 1.4 % (0.5-1.5); MetHb 0.3 % (0.0-1.5); O2Hb 95.4 % (94.0-97.0); SITE, ABG Right Radial; VENT MODE, BG NRB
--- NOTE | 2020-07-31 10:35 | NUR ---
PATIENT HAD CHANGE OF STATUS NO RESPONSE TO STIMULI, NO PULSE, CODE BLUE WAS INITIATED AND ACLS' PROTOCOL WAS DONE. HOSPITALIST, CHARGE NURSE, RT, PHARMACY, X-RAY, RN WERE PRESENT. PATIENT WAS INTUBATED AT 1100. VITAL SIGNS WERE TEMP 97.3F, HR 70 SPO2 78% BP 63/27. LEVOPHED DRIP WAS STARTED IN MAU AND WAS TRANSFERRED TO ICU FOR CONTINUITY OF CARE. BRENDA ALFRED RECEIVED REPORT AT BEDSIDE. PATIENT LEFT TO ICU VIA GURNEY BY RN, SIFTING OPERATOR AND RT. CALLED PATIENT'S FAMILY CLEOPATRA () AND GAVE UPDATE ABOUT THE PATIENT INTUBATION AND TRANSFER TO ICU.
--- NOTE | 2020-07-31 10:35 | NUR ---
patient found non verbal and non responsive with shelter monitor showed v pacing with bradycardia with 20-30 electrical activity CPR was continued for multiple rounds at 1300, patient transferred to icu per requested after patient intubated in room 118-1 with ACLS protocol
[2020-07-31] MEDS ORDERED: NOREPINEPHRINE 8 MG in IV NS 0.9% 242 ML IV PRN (11:00)
[2020-07-31] MEDS ORDERED: PROPOFOL 100 ML IV PRN (11:00)
[2020-07-31 11:05] LABS: BASOPHILS # (AUTO) 0.6 /CMM (0.0-0.2); BASOPHILS % (AUTO) 0.9 % (0.0-2.0); HEMATOCRIT 38 % (39-51); HEMOGLOBIN 10.7 g/dL (13.5-17.5); LYMPHOCYTES # (AUTO) 50.4 /CMM (0.8-4.8); LYMPHOCYTES % (AUTO) 72.2 % (20.0-44.0); MEAN CORPUSCULAR HGB CONC 28 g/dl (31.0-36.0); MEAN CORPUSCULAR VOLUME 96 fL (80-96); MONOCYTES % (AUTO) 1.5 % (2.0-12.0); NEUTROPHILS # (AUTO) 17.8 /CMM (1.8-8.9); NEUTROPHILS % (AUTO) 25.4 % (43.0-81.0); PLATELET COUNT (AUTO) 166 /CMM (150-450); RED BLOOD CELL COUNT(AUTO) 3.94 MIL/uL (4.5-6.0)
[2020-07-31 11:15] LABS: CALCIUM, SERUM 11.2 mg/dL (8.5-10.1); CARBON DIOXIDE 27 mmol/L (21-32); CHLORIDE 111 mmol/L (98-107); CREATININE 1.6 mg/dL (0.6-1.3); POTASSIUM 5.7 mmol/L (3.5-5.1); SODIUM SERUM 148 mmol/L (136-145)
[2020-07-31 11:29] LABS: WHITE BLOOD COUNT (AUTO) 69.9 K/uL (4.3-11.0)
[2020-07-31 11:41] LABS: GLUCOSE 446 mg/dL (74-106); UREA NITROGEN, BLOOD 87 mg/dL (7-18)
--- NOTE | 2020-07-31 13:00 | NUR ---
RN NOTES RECEIVED BEDSIDE REPORT FROM BRENDA HELM. PATIENT INTUBATED, NG TUBE IS NOT PATENT, WILL TRY TO RE INSERT. NOTED WITH MIDLINE ON LEFT ARM WITH LEVO RUNNING @ 0.1 MCG/KG/HR, BP IS STILL LOW WILL TITRATE PER PROTOCOL. TRANSFERRED TO ROOM 265 WITH RT. SAFETY MEASURES IN PLACE, ON ISOLATION FOR COVID 19. WILL CONTINUE TO MONITOR.
[2020-07-31] MEDS ORDERED: DOPamine 400 MG in IV D5W 250 ML IV PRN (14:30)
[2020-07-31] MEDS ORDERED: CALCIUM CHLORIDE 1,000 MG/10 ML DISP.SYRIN IV ONE (14:42)
[2020-07-31] MEDS ORDERED: SODIUM BICARBONATE SYR 50 MEQ/50 ML DISP.SYRIN IV ONE (14:42)
[2020-07-31] MEDS ORDERED: NOREPINEPHRINE 4 MG/4 ML AMPUL IV ONE (14:42)
[2020-07-31] MEDS ORDERED: EPINEPHRINE (1:10,000) SYRINGE 1 MG/10 ML DISP.SYRIN IVP ONE (14:42)
[2020-07-31] MEDS ORDERED: FEE EMEERGENCY 1 MIN EA MC ONE (14:42)
[2020-07-31] MEDS ORDERED: NOREPINEPHRINE 32 MG in IV NS 0.9% 218 ML IV PRN (15:00)
[2020-07-31] MEDS ORDERED: PHENYLEPHRINE 100 MG in IV NS 0.9% 240 ML IV PRN (15:00)
--- NOTE | 2020-07-31 15:00 | NUR ---
RN NOTES TRIED INSERTING NG TUBE FOR 2X BUT UNABLE DUE TO RESISTANCE AND PATIENT START TO DESATURATE. WILL TRY AGAIN LATER. CHARGE NURSE AND MD AWARE.
[2020-07-31 15:15] LABS: CALCIUM, SERUM 9.3 mg/dL (8.5-10.1); CARBON DIOXIDE 27 mmol/L (21-32); CHLORIDE 108 mmol/L (98-107); CREATININE 1.9 mg/dL (0.6-1.3); POTASSIUM 6.2 mmol/L (3.5-5.1); SODIUM SERUM 144 mmol/L (136-145)
[2020-07-31 15:17] LABS: GLUCOSE 488 mg/dL (74-106); UREA NITROGEN, BLOOD 92 mg/dL (7-18)
[2020-07-31] MEDS ORDERED: INSULIN REGULAR, HUMAN 100 UNIT/ML 3 ML VIAL SQ PRN (17:00)
[2020-07-31] MEDS ORDERED: DEXTROSE 50%-WATER 50 ML DISP.SYRIN IV PRN (17:00)
[2020-07-31] MEDS ORDERED: VASOPRESSIN INJ 40 UNIT in IV NS 0.9% 38 ML IV PRN (17:00)
[2020-07-31] MEDS ORDERED: BLOOD SUGAR DIAGNOSTIC 1 EACH STRIP IN SCH (18:00)
--- NOTE | 2020-07-31 19:10 | NUR ---
RN NOTES PATIENT INTUBATED AND SEDATED ON PROPOFOL, ON 3 PRESSORS BUT BP IS STILL UNSTABLE, FAMILY AND MD MADE AWARE, FAMILY WILL DISCUSS REGARDING STATUS BUT FULL CODE FOR NOW. ENDORSE TO INDUSTRIAL [employer]EN SYSTEMS DESIGNER NURSE FOR PARAMJIT.
--- NOTE | 2020-07-31 20:11 | NUR ---
BRENDA MAXWELL HERE AT UNIT SPEAKING TO CLOTH BLEACHING SUPERVISOR ED OUTSIDE OF PT ROOM. Addendum: 07/31/20 at 2031 by CASEY IYER RN FAMILY AGREED TO COMFORT MEASURES ONLY.
[2020-07-31] MEDS ORDERED: MORPHINE SULFATE INJ 2 MG/ML DISP.SYRIN IV PRN (20:30)
[2020-07-31] MEDS ORDERED: LORAZEPAM INJ 2 MG/ML VIAL IV PRN (20:30)
[2020-07-31] MEDS ORDERED: PANTOPRAZOLE 40 MG/PACK PACK GT SCH (21:00)
[2020-07-31] MEDS ORDERED: MEROPENEM 500 MG in IV NS 0.9% 50 ML IV SCH (21:00)
--- NOTE | 2020-07-31 21:06 | NUR ---
ORDERS WERE PUT FOR TERMINAL EXTUBATION. EXTUBATED PATIENT AT THIS TIME AND PLACED ON 2LNC. CHARGE NURSE INFORMED.
--- NOTE | 2020-07-31 21:06 | NUR ---
BRENDA NOTE 2 RTS AT BEDSIDE COMPLETED TERMINAL EXTUBATION, Addendum: 07/31/20 at 2107 by CASEY IYER RN DE PLACED ON 2L OF O2 [place],
--- NOTE | 2020-07-31 21:49 | NUR ---
RN NOTE PT PRONOUNCED BY SALES CONTRACT ADMINISTRATOR ED.
--- NOTE | 2020-07-31 22:21 | NUR ---
RN NOTE SPOKE TO [facility] AND SPOKE TO KRISHNA. REFERENCE ID NUMBER: [id number]
--- NOTE | 2020-07-31 22:34 | NUR ---
RN NOTE SPOKE TO NESHA FROM [facility]. NOT A ADVERTISING PROJECT MANAGER'S CASE.
[2020-08-01 14:07] LABS: *ANA ANTI-CENTROMERE B AB <0.2 AI (0.0-0.9); *ANA ANTI-DNA(DS) AB, QN 1 IU/mL (0-9); *ANA ANTI-JO-1 <0.2 AI (0.0-0.9); *ANA ANTICHROMATIN ANTIBODY <0.2 AI (0.0-0.9); *ANA RNP ANTIBODIES 0.3 AI (0.0-0.9); *ANA SJOGREN'S ANTI-SS-A <0.2 AI (0.0-0.9); *ANA SJOGREN'S ANTI-SS-B <0.2 AI (0.0-0.9); *ANAANTI-SCLERODERMA-70 AB <0.2 AI (0.0-0.9); *ANASMITH AB <0.2 AI (0.0-0.9)
== END 2020-07-31 22:50 | disposition expired | DRG 871 ==
LOC: ER 08:57 → TELE1 13:22 → TELE-TD 07-23 03:06 → TELE1 07-26 12:24 → ICU 07-31 12:32
PROVIDERS: ADMIT Nurse Practitioner Acute Care; ATTEND Nurse Practitioner Acute Care
PROC: XW13325 Transfusion of Convalescent Plasma (Nonautologous) into Peripheral Vein, Percutaneous Approach, New Technology Group 5 (ICD-10-PCS; 2020-07-21)
PROC: XW033H5 Introduction of Tocilizumab into Peripheral Vein, Percutaneous Approach, New Technology Group 5 (ICD-10-PCS; 2020-07-24)
PROC: 5A1935Z Respiratory Ventilation, Less than 24 Consecutive Hours (ICD-10-PCS; principal; 2020-07-31)
PROC: 0BH17EZ Insertion of Endotracheal Airway into Trachea, Via Natural or Artificial Opening (ICD-10-PCS; 2020-07-31)
PROC: 02HV33Z Insertion of Infusion Device into Superior Vena Cava, Percutaneous Approach (ICD-10-PCS; 2020-07-31)
PROC: B548ZZA Ultrasonography of Superior Vena Cava, Guidance (ICD-10-PCS; 2020-07-31)
PROC: 5A2204Z Restoration of Cardiac Rhythm, Single (ICD-10-PCS; 2020-07-31)
DX: A41.89 Other specified sepsis (principal); U07.1 COVID-19; N17.0 Acute kidney failure with tubular necrosis; J96.01 Acute respiratory failure with hypoxia; J12.89 Other viral pneumonia; I21.A1 Myocardial infarction type 2; R65.21 Severe sepsis with septic shock; E43 Unspecified severe protein-calorie malnutrition; G92 Toxic encephalopathy; J15.9 Unspecified bacterial pneumonia; D68.59 Other primary thrombophilia; I13.0 Hypertensive heart and chronic kidney disease with heart failure and stage 1 through stage 4 chronic kidney disease, or unspecified chronic kidney disease; D61.818 Other pancytopenia; D69.3 Immune thrombocytopenic purpura; C91.10 Chronic lymphocytic leukemia of B-cell type not having achieved remission; E87.1 Hypo-osmolality and hyponatremia; I48.20 Chronic atrial fibrillation, unspecified; I50.9 Heart failure, unspecified; I25.10 Atherosclerotic heart disease of native coronary artery without angina pectoris; Z98.890 Other specified postprocedural states; Z79.899 Other long term (current) drug therapy; M10.9 Gout, unspecified; D63.8 Anemia in other chronic diseases classified elsewhere; E87.6 Hypokalemia; Z51.5 Encounter for palliative care; Z74.09 Other reduced mobility; R62.7 Adult failure to thrive; Z95.0 Presence of cardiac pacemaker; Z95.1 Presence of aortocoronary bypass graft; I25.2 Old myocardial infarction; K76.0 Fatty (change of) liver, not elsewhere classified; N18.9 Chronic kidney disease, unspecified; Z86.73 Personal history of transient ischemic attack (TIA), and cerebral infarction without residual deficits; Z90.49 Acquired absence of other specified parts of digestive tract; Z79.01 Long term (current) use of anticoagulants; Z87.891 Personal history of nicotine dependence; E11.22 Type 2 diabetes mellitus with diabetic chronic kidney disease; E83.52 Hypercalcemia; E83.41 Hypermagnesemia; E86.0 Dehydration; E87.5 Hyperkalemia; H70.12 Chronic mastoiditis, left ear; E05.90 Thyrotoxicosis, unspecified without thyrotoxic crisis or storm; M41.9 Scoliosis, unspecified; K80.20 Calculus of gallbladder without cholecystitis without obstruction; K57.90 Diverticulosis of intestine, part unspecified, without perforation or abscess without bleeding; E86.9 Volume depletion, unspecified; G90.8 Other disorders of autonomic nervous system; I95.1 Orthostatic hypotension
CPT/HCPCS: 36415; 36600; 70450-TC; 71045-TC; 71250-TC; 74018; 76700-TC; 76705-TC; 80048-TC; 80053-TC; 80061-TC; 80076-TC; 80202-TC; 81001; 82040-TC; 82105; 82140-TC; 82378; 82550-TC; 82570-TC; 82728-TC; 82784; 82803-TC; 82962-TC; 83540-TC; 83605-TC; 83615-TC; 83735-TC; 83970; 84100-TC; 84155; 84155-TC; 84165; 84300-TC; 84439-TC; 84443-TC; 84484-TC; 85025-TC; 85378-TC; 85396; 85730-TC; 86140-TC; 86225; 86235; 86301; 86334; 86431-TC; 86480; 86706; 86803; 86850-TC; 87040-TC; 87081-TC; 87086-TC; 87340; 94002-TC; 94762-TC; 94799-TC; A6403; C9803; G0378; J0171; J0692; J1100; J1200; J1265; J1644; J1815; J1940; J2060; J2185; J2270; J2370; J2543; J3262; J3370; J3480; J3490; J7030; J7050; J7060; J7070; P9017-BL; U0003